=== PATIENT | male | born 1945 | race Caucasian/White ===

== ENCOUNTER 2016-04-26 11:16 | Outpatient (CLI) | payer MEDICARE, MEDICAID | END 2016-04-26 23:59 | disposition home or self-care (01) | DX: R26.9 Unspecified abnormalities of gait and mobility (principal); G40.109 Localization-related (focal) (partial) symptomatic epilepsy and epileptic syndromes with simple partial seizures, not intractable, without status epilepticus ==

== ENCOUNTER 2016-05-30 05:09 | Outpatient (CLI) | payer MEDICARE, MEDICAID | END 2016-05-30 05:10 | disposition home or self-care (01) | DX: G40.109 Localization-related (focal) (partial) symptomatic epilepsy and epileptic syndromes with simple partial seizures, not intractable, without status epilepticus (principal) ==

== ENCOUNTER 2016-09-25 08:00 | Outpatient (CLI) | payer MEDICARE, MEDICAID | END 2016-09-25 08:01 | LOC: LAB.N 08:00 | PROVIDERS: ATTEND Specialist | DX: R26.9 Unspecified abnormalities of gait and mobility (principal); G40.109 Localization-related (focal) (partial) symptomatic epilepsy and epileptic syndromes with simple partial seizures, not intractable, without status epilepticus | CPT/HCPCS: 36415; 80175 ==

== ENCOUNTER 2017-01-10 14:36 | Outpatient (CLI) | payer MEDICARE, MEDICAID ==
[2017-01-10 13:19] LABS: BASOPHILS # (AUTO) 0.1 10^3/uL (0.0-0.1); BASOPHILS % (AUTO) 0.6 %; EOSINOPHILS # (AUTO) 0.3 10^3/uL (0.0-0.7); EOSINOPHILS % (AUTO) 3.7 %; LYMPHOCYTES # (AUTO) 1.9 10^3/uL (1.5-3.5); LYMPHOCYTES % (AUTO) 21.1 %; MEAN CORPUSCULAR HEMOGLOBIN 30.4 pg (27.0-31.0); MEAN CORPUSCULAR HGB CONC 34.2 g/dL (32.0-36.0); MEAN CORPUSCULAR VOLUME 88.9 fL (80.0-94.0); MEAN PLATELET VOLUME 7.1 fL (7.4-11.4); MONOCYTES # (AUTO) 0.8 10^3/uL (0.0-1.0); MONOCYTES % (AUTO) 9.1 %; NEUTROPHILS # (AUTO) 5.8 10^3/uL (1.5-6.6); NEUTROPHILS % (AUTO) 65.5 %; RED BLOOD COUNT 4.61 10^6/uL (4.70-6.10); RED CELL DISTRIBUTION WIDTH 13.7 % (12.0-15.0); UNCORRECTED WHITE BLOOD COUNT 8.8 x10^3/uL; WHITE BLOOD COUNT 8.8 x10^3/uL (4.8-10.8)
[2017-01-10 13:49] LABS: ALBUMIN/GLOBULIN RATIO 1.6 (1.0-2.2); BILIRUBIN,TOTAL 0.8 mg/dL (0.2-1.0); BUN - BLOOD UREA NITROGEN 17 mg/dL (6-20); CALCIUM 9.3 mg/dL (8.5-10.3); CARBON DIOXIDE - CO2 29 mmol/L (21-32); CHLORIDE 99 mmol/L (101-111); CHOL/HDL RATIO 5.3 (<5.0); CHOLESTEROL 258 mg/dL; CREATININE 1.1 mg/dL (0.6-1.2); GFR - MDRD 66 (>89); GLUCOSE 102 mg/dL (70-100); HDL CHOLESTEROL 49 mg/dL; LDL/HDL RATIO 3.8 (<3.6); POTASSIUM 4.5 mmol/L (3.5-5.0); SODIUM 134 mmol/L (135-145); TOTAL PROTEIN 7.2 g/dL (6.7-8.2); TRIGLYCERIDES 112 mg/dL; VLDL CHOLESTEROL 22 mg/dL
== END 2017-01-10 14:37 | disposition home or self-care (01) ==
LOC: LAB.N 14:36
PROVIDERS: ATTEND Family Medicine
DX: L98.1 Factitial dermatitis (principal); E78.5 Hyperlipidemia, unspecified
CPT/HCPCS: 36415; 80053; 80061; 85025

== ENCOUNTER 2017-01-16 08:24 | Outpatient (CLI) | payer MEDICARE, MEDICAID | END 2017-01-16 08:25 | disposition critical access hospital (66) | LOC: EMS 08:24 | PROVIDERS: ATTEND Surgery | DX: R47.9 Unspecified speech disturbances (principal); R26.2 Difficulty in walking, not elsewhere classified | CPT/HCPCS: A0425; A0429 ==

== ENCOUNTER 2017-01-16 08:45 | Emergency (ER) | payer MEDICARE, MEDICAID ==
--- NOTE | 2017-01-16 09:11 | ED Physician Documentation ---
History of Present Illness - Stated complaint Stated Complaint: DIFF WITH SPEECH - Chief complaint Chief Complaint: Neuro - History obtained from History obtained from: Patient - History of Present Illness Timing: Today - Additonal information Additional information: 71-year-old male with prior history of traumatic brain injury seizure disorder and speech impediment today was in his usual state of health when he awoke this morning he was doing his usual morning routine when he suddenly developed profound dizziness. He became somewhat nauseous with this he has not had any vomiting he has had some difficulty walking. He does not note weakness on one side. He does have difficulty with his speech on a usual basis and he does not feel like this is changed. Review of Systems Constitutional: denies: Fever Eyes: denies: Decreased vision Ears: denies: Ear pain Nose: denies: Congestion Throat: denies: Sore throat Cardiac: denies: Chest pain / pressure, Palpitations Respiratory: denies: Dyspnea, Cough GI: reports: Nausea. denies: Abdominal Pain, Vomiting : denies: Dysuria, Frequency Skin: denies: Rash Musculoskeletal: denies: Neck pain, Back pain, Extremity pain Neurologic: reports: Other (Dizziness). denies: Generalized weakness, Focal weakness, Numbness, Headache, Head injury, LOC PD PAST MEDICAL HISTORY - Past Medical History Past Medical History: Yes Neuro: CVA, Head injury, Seizure disorder Derm: Eczema - Past Surgical History Past Surgical History: Yes General: Cholecystectomy Ortho: Spine surgery - Present Medications Home Medications: Ambulatory Orders Medication Instructions Recorded Confirmed Lamotrigine 75 mg PO TID 07/08/13 01/16/17 Azithromycin [Zithromax] 250 mg PO DAILY #6 tablet 01/16/17 - Allergies Allergies/Adverse Reactions: Allergies Allergy/AdvReac Type Severity Reaction Status Date / Time acetaminophen [From Percocet] AdvReac Emesis Verified 02/13/16 18:11 oxycodone HCl * AdvReac Emesis Verified 02/13/16 18:11 [From Percocet] - Social History Does the pt smoke?: Yes Smoking Status: Current every day smoker Does the pt drink ETOH?: No Does the pt have substance abuse?: No - POLST Patient has POLST: No PD ED PE NORMAL - Vitals Vital signs reviewed: Yes (Hypertensive) - General General: Alert and oriented X 3, No acute distress, Well developed/nourished, Other (There is a dysarthric speech which the patient indicates is normal for him) - HEENT HEENT: Atraumatic, PERRL, EOMI, Other (There are 2 beats of night nystagmus bilaterally with the eyes. There Is some mild inflammation in the canal bilaterally and minimal inflammation of the TM bilaterally.) - Neck Neck: Supple, no meningeal sign, No bony TTP, No bruit - Cardiac Cardiac: RRR, No murmur - Respiratory Respiratory: No respiratory distress, Clear bilaterally - Abdomen Abdomen: Soft, Non tender - Back Back: No CVA TTP, No spinal TTP - Derm Derm: Normal color, Warm and dry, No rash - Extremities Extremities: No deformity, No edema - Neuro Neuro: Alert and oriented X 3, care professional 2-12 intact, No motor deficit, No sensory deficit, Other (Dysarthric speech) - Psych Psych: Normal mood, Normal affect Results - Vitals Vitals: Vital Signs - 24 hr 01/16/17 01/16/17 01/16/17 08:45 09:28 10:18 Temperature 36.1 C L 36.0 C L 35.9 C L Heart Rate 73 71 67 Respiratory 17 12 17 Rate Blood Pressure 171/82 H 139/89 H 147/81 H O2 Saturation 97 98 95 01/16/17 11:36 Temperature Heart Rate 67 Respiratory 15 Rate Blood Pressure 150/81 H O2 Saturation 95 Oxygen O2 Source Room air - Labs Labs: Laboratory Tests 01/16/17 01/16/17 01/16/17 08:55 08:55 08:55 WBC 6.8 RBC 4.48 L Hgb 13.5 L Hct 39.9 L MCV 89.1 MCH 30.1 MCHC 33.8 RDW 14.0 Plt Count 233 MPV 6.9 L Neut # 4.6 Lymph # 1.3 L [place] # 0.6 Eos # 0.2 Baso # 0.1 Absolute Nucleated RBC 0.00 Nucleated RBC % 0.0 Sodium 136 Potassium 4.5 Chloride 100 L Carbon Dioxide 26 Anion Gap 10.0 BUN 16 Creatinine 1.1 Estimated GFR (MDRD) 66 L Glucose 149 H Calcium 9.2 Total Bilirubin 0.7 AST 21 ALT 14 Alkaline Phosphatase 69 Troponin I < 0.04 Total Protein 6.8 Albumin 4.2 Globulin 2.6 Albumin/Globulin Ratio 1.6 Lipase 28 - Rads (name of study) CT head without Radiology: Prelim report reviewed (Impression: Status post right temporal craniotomy and large area of right temporal area of encephalomalacia, generalized age-related cortical atrophic changes again noted, without evidence of acute intracranial bleed or hematoma.), EMP read indepedently, See rad report Procedures - IVC sono (time) 0855 Bedside IVC sono: IVC measures (cm) (1.88), Euvolemia PD MEDICAL DECISION MAKING - ED course Complexity details: reviewed old records, reviewed results, re-evaluated patient , considered differential, d/w patient ED course: 71-year-old male with prior history of traumatic brain injury has woken this morning with development of acute dizziness with nausea. He does have some nystagmus and some inflammation bilaterally in the TMs. The patient is administered dexamethasone and an order is made for meclizine and the patient refuses this as he is concerned about interference with his seizure medications. His examination is concerning for occult otitis. He does have dizziness. I believe in the circumstances treatment is warranted. He is given IV rocephin Departure - Departure Disposition: 01 Home, Self Care Clinical Impression: Otitis media Qualifiers: Otitis media type: suppurative Chronicity: acute Laterality: bilateral Recurrence: not specified as recurrent Spontaneous tympanic membrane rupture: without spontaneous rupture Qualified Code(s): H66.003 - Acute suppurative otitis media without spontaneous rupture of ear drum, bilateral Condition: Stable Instructions: ED Otitis Media Acute Adult Follow-Up: Emigdio Benjamin MD [Primary Care Provider] - Prescriptions: Azithromycin [Zithromax] 250 mg PO DAILY #6 tablet
[2017-01-16] MEDS ORDERED: DEXAMETHASONE 10 MG/ML VIAL PO STA (09:12)
[2017-01-16] MEDS ORDERED: MECLIZINE 12.5 MG TABLET PO STA (09:12)
[2017-01-16 09:15] LABS: BASOPHILS # (AUTO) 0.1 10^3/uL (0.0-0.1); EOSINOPHILS # (AUTO) 0.2 10^3/uL (0.0-0.7); EOSINOPHILS % (AUTO) 3.6 %; HCT - HEMATOCRIT 39.9 % (42.0-52.0); HGB - HEMOGLOBIN 13.5 g/dL (14.0-18.0); LYMPHOCYTES # (AUTO) 1.3 10^3/uL (1.5-3.5); LYMPHOCYTES % (AUTO) 18.8 %; MEAN CORPUSCULAR HEMOGLOBIN 30.1 pg (27.0-31.0); MEAN CORPUSCULAR HGB CONC 33.8 g/dL (32.0-36.0); MEAN CORPUSCULAR VOLUME 89.1 fL (80.0-94.0); MEAN PLATELET VOLUME 6.9 fL (7.4-11.4); MONOCYTES # (AUTO) 0.6 10^3/uL (0.0-1.0); NEUTROPHILS # (AUTO) 4.6 10^3/uL (1.5-6.6); NEUTROPHILS % (AUTO) 67.6 %; RED BLOOD COUNT 4.48 10^6/uL (4.70-6.10); UNCORRECTED WHITE BLOOD COUNT 6.8 x10^3/uL; WHITE BLOOD COUNT 6.8 x10^3/uL (4.8-10.8)
[2017-01-16 09:33] LABS: ALBUMIN/GLOBULIN RATIO 1.6 (1.0-2.2); BILIRUBIN,TOTAL 0.7 mg/dL (0.2-1.0); CALCIUM 9.2 mg/dL (8.5-10.3); CREATININE 1.1 mg/dL (0.6-1.2); POTASSIUM 4.5 mmol/L (3.5-5.0); TOTAL PROTEIN 6.8 g/dL (6.7-8.2)
[2017-01-16] MEDS ORDERED: DEXAMETHASONE 10 MG/ML VIAL ONE (09:37)
[2017-01-16] MEDS ORDERED: MECLIZINE 12.5 MG TABLET PO ONE (09:37)
--- NOTE | 2017-01-16 10:18 | CT Preliminary Report ---
Exam: CT HEAD W/O IMPRESSION: Status post right temporal craniotomy and large area of right temporal area of encephalom alacia, generalized age-related cortical atrophic changes again noted, without evidence of acute intr acranial bleed or hematoma. [facility] SITE ID: [id number]
--- NOTE | 2017-01-16 10:21 | CT Report ---
EXAM: CT HEAD EXAM DATE: 01/16/2017 09:22 AM. CLINICAL HISTORY: Dizziness/speech diff prior TBI. COMPARISON: 03/27/2011. TECHNIQUE: Multiaxial CT images were obtained from the foramen magnum to the vertex. IV contrast: Non e. Reformats: Coronal. In accordance with CT protocol optimization, one or more of the following dose reduction techniques w ere utilized for this exam: automated exposure control, adjustment of mA and/or KV based on patient s ize, or use of iterative reconstructive technique. FINDINGS: Parenchyma: The prior right temporal craniotomy with large size right temporal hypodensity, likely en cephalomalacia again noted, without significant interval changes. No intraparenchymal hemorrhage. No evidence of mass or midline shift. Alatorre-white differentiation is otherwise distinct. Extraaxial Spaces: Normal for age. No subdural or epidural collections identified. Ventricles: The ventricles and cortical sulci are enlarged, consistent with age-related tissue loss. Sinuses: Imaged paranasal sinuses, orbits, and mastoids show no significant abnormality. Bones: No evidence of fracture or calvarial defect. Other: Diffuse chronic microangiopathic white matter changes are slightly more prominent. IMPRESSION: Status post right temporal craniotomy and large area of right temporal area of encephalom alacia, generalized age-related cortical atrophic changes again noted, without evidence of acute intr acranial bleed or hematoma. [facility] Referring Provider Line: [phone] SITE ID: [id number]
[2017-01-16] MEDS ORDERED: cefTRIAXone 1 GM in SODIUM CHLORIDE 0.9% MINIBAG 100 ML IV STA (10:42)
[2017-01-16] MEDS ORDERED: cefTRIAXone 1 GM VIAL ONE (10:57)
[2017-01-16 12:37] VITALS: BP 127/85
== END 2017-01-16 14:42 | disposition home or self-care (01) ==
LOC: EDUNIT# → ED 08:45
DX: H66.003 Acute suppurative otitis media without spontaneous rupture of ear drum, bilateral (principal); Z86.73 Personal history of transient ischemic attack (TIA), and cerebral infarction without residual deficits; Z87.820 Personal history of traumatic brain injury; G40.909 Epilepsy, unspecified, not intractable, without status epilepticus; F17.200 Nicotine dependence, unspecified, uncomplicated; R42 Dizziness and giddiness
CPT/HCPCS: 36415; 70450; 80053; 83690; 84484; 85025; 96365; 99284; A9270

== ENCOUNTER 2017-04-02 08:00 | Outpatient (CLI) | payer MEDICARE, MEDICAID ==
[2017-04-02 14:08] LABS: CALCIUM 8.9 mg/dL (8.5-10.3); CREATININE 0.9 mg/dL (0.6-1.2); POTASSIUM 4.2 mmol/L (3.5-5.0)
== END 2017-04-02 08:01 ==
LOC: LAB.N 08:00
PROVIDERS: ATTEND Family Medicine
DX: I71.4 Abdominal aortic aneurysm, without rupture (principal)
CPT/HCPCS: 36415; 80048

== ENCOUNTER 2017-04-11 07:49 | Outpatient (CLI) | payer MEDICARE, MEDICAID ==
[2017-04-11] MEDS ORDERED: IOPAMIDOL-300 100 ML VIAL ONE (09:01)
[2017-04-11] MEDS ORDERED: IOPAMIDOL-300 100 ML VIAL IVP ONE (10:40)
--- NOTE | 2017-04-11 19:42 | CT Report ---
EXAM: CT ANGIOGRAM ABDOMEN AND PELVIS WITH CONTRAST EXAM DATE: 04/11/2017 10:46 AM. CLINICAL HISTORY: Abdominal aortic aneurysm. COMPARISONS: Noncontrast CT abdomen and pelvis 12/12/2006. TECHNIQUE: Routine helical CT angiogram imaging was performed through the abdomen and pelvis in the a rterial phase. IV contrast: 100 mL of Isovue 300. Enteric contrast: No. Reconstructions: Coronal, sag ittal, and 3D MIP reconstructions. In accordance with CT protocol optimization, one or more of the following dose reduction techniques w ere utilized for this exam: automated exposure control, adjustment of mA and/or KV based on patient s ize, or use of iterative reconstructive technique. FINDINGS: Vasculature: Interval intact fusiform infrarenal abdominal aortic aneurysm measures up to 5 x 5.3 cm in cross-section from 2 cm below the renal artery takeoff to 2 cm proximal to the aortic bifurcation, approximately 8.3 cm in length. Aneurysm neck measures 2.4 cm and distal aorta proximal to the bifur cation measures 2.1 cm. Considerable mural thrombus. Slightly dilated aortic segment from below the r enal artery to the proximal neck at 3.1 cm in maximal diameter. Moderate calcified plaques of aorta a nd common iliac arteries. No iliac aneurysm. Patent major abdominal aortic branch vessels. Duplicated left renal arteries, with an accessory artery supplying the lower pole. Lung Bases: Dependent changes. Abdominal Organs: Due to CTA contrast bolus timing, solid visceral enhancement is not optimal. No obv iously suspicious findings of the liver, spleen, pancreas, adrenal glands, and kidneys. Probable bila teral renal cysts up to 2.2 cm inferior right pole and 2.5 cm left mid pole. No ductal dilatation pos t cholecystectomy. Peritoneal Cavity: No acute intestinal abnormality. Normal retrocecal appendix. No free fluid or free air. No adenopathy evident. Pelvic Organs: Moderately enlarged prostate 5 cm AP diameter elevates the bladder base. No apparent f ocal abnormality of the relatively contracted bladder, noting a tiny urachal remnant. Bones: Degenerative changes of the spine, including grade 1 anterolisthesis L4 on L5. Mild depression of central T11 and T12 superior endplates, likely chronic. IMPRESSION: 1. An intact fusiform infrarenal abdominal aortic aneurysm 5.3 cm in maximal diameter. 2. No acute inflammatory or obstructive process. 3. Bilateral renal cysts. 4. Enlarged prostate. [facility] Referring Provider Line: [phone] SITE ID: [id number]
== END 2017-04-11 07:50 | disposition home or self-care (01) ==
LOC: DI 07:49
PROVIDERS: ATTEND Family Medicine
DX: I71.4 Abdominal aortic aneurysm, without rupture (principal); Q61.02 Congenital multiple renal cysts; N40.0 Benign prostatic hyperplasia without lower urinary tract symptoms
CPT/HCPCS: 74174; Q9967

== ENCOUNTER 2018-01-30 08:21 | Outpatient (CLI) | payer MEDICARE, MEDICAID ==
[2018-01-30 13:32] LABS: ALBUMIN 4.3 g/dL (3.2-5.5); ALBUMIN/GLOBULIN RATIO 1.4 (1.0-2.2); ALKALINE PHOSPHATASE 95 IU/L (42-121); ALT ALANINE AMINOTRANSFERASE 12 IU/L (10-60); AST ASPARTATE AMINOTRANSFERASE 21 IU/L (10-42); BUN - BLOOD UREA NITROGEN 13 mg/dL (6-20); CARBON DIOXIDE - CO2 27 mmol/L (21-32); CHLORIDE 97 mmol/L (101-111); CHOL/HDL RATIO 4.7 (<5.0); CHOLESTEROL 232 mg/dL; CREATININE 1.2 mg/dL (0.6-1.2); GFR - MDRD 60 (>89); GLUCOSE 99 mg/dL (70-100); HDL CHOLESTEROL 49 mg/dL; LDL CHOLESTEROL,CALCULATED 168 mg/dL; LDL/HDL RATIO 3.4 (<3.6); SODIUM 133 mmol/L (135-145); TOTAL PROTEIN 7.3 g/dL (6.7-8.2); VLDL CHOLESTEROL 15 mg/dL
== END 2018-01-30 08:22 | disposition home or self-care (01) ==
LOC: LAB.N 08:21
PROVIDERS: ATTEND Family Medicine
DX: E78.5 Hyperlipidemia, unspecified (principal)
CPT/HCPCS: 36415; 80053; 80061; 83721

== ENCOUNTER 2018-07-23 08:00 | Outpatient (CLI) | payer MEDICARE, MEDICAID ==
[2018-07-23 12:18] LABS: BASOPHILS % (AUTO) 0.4 %; EOSINOPHILS % (AUTO) 0.4 %; HGB - HEMOGLOBIN 11.9 g/dL (14.0-18.0); LYMPHOCYTES # (AUTO) 0.9 10^3/uL (1.5-3.5); LYMPHOCYTES % (AUTO) 10.7 %; MEAN CORPUSCULAR HEMOGLOBIN 29.7 pg (27.0-31.0); MEAN CORPUSCULAR HGB CONC 33.8 g/dL (32.0-36.0); MEAN CORPUSCULAR VOLUME 87.8 fL (80.0-94.0); MEAN PLATELET VOLUME 6.7 fL (7.4-11.4); MONOCYTES # (AUTO) 0.8 10^3/uL (0.0-1.0); MONOCYTES % (AUTO) 9.6 %; NEUTROPHILS # (AUTO) 6.6 10^3/uL (1.5-6.6); NEUTROPHILS % (AUTO) 78.9 %; PLT - PLATELET COUNT 325 10^3/uL (130-450); RED CELL DISTRIBUTION WIDTH 14.3 % (12.0-15.0); WHITE BLOOD COUNT 8.4 x10^3/uL (4.8-10.8)
[2018-07-23 12:39] LABS: ALBUMIN 4.2 g/dL (3.2-5.5); ALBUMIN/GLOBULIN RATIO 1.4 (1.0-2.2); BILIRUBIN,TOTAL 0.9 mg/dL (0.2-1.0); CALCIUM 9.4 mg/dL (8.5-10.3); CREATININE 0.8 mg/dL (0.6-1.2); TOTAL PROTEIN 7.3 g/dL (6.7-8.2)
== END 2018-07-23 23:59 | disposition home or self-care (01) ==
LOC: LAB.N 08:00
PROVIDERS: ATTEND Family Medicine
DX: M79.10 Myalgia, unspecified site (principal); L98.1 Factitial dermatitis; L30.9 Dermatitis, unspecified; R04.0 Epistaxis
CPT/HCPCS: 36415; 80053; 85025

== ENCOUNTER 2018-11-10 16:42 | Emergency (ER) | payer MEDICARE, MEDICAID ==
[2018-11-10] MEDS ORDERED: LIDOCAINE 2% URO-JET 5 ML SYRINGE UR STA (17:08)
[2018-11-10] MEDS ORDERED: TAMSULOSIN 0.4 MG CAPSULE PO STA (17:44)
[2018-11-10 17:48] LABS: BILIRUBIN,URINE NEGATIVE (NEGATIVE); GLUCOSE, URINE (UA) 100 mg/dL (NEGATIVE); KETONES,URINE (UA) NEGATIVE (NEGATIVE); LEUKOCYTE ESTERASE, URINE NEGATIVE (NEGATIVE); NITRITE,URINE NEGATIVE (NEGATIVE); OCCULT BLOOD,URINE MODERATE (NEGATIVE); PROTEIN,URINE NEGATIVE (NEGATIVE); UROBILINOGEN,URINE 0.2 (NORMAL) E.U./dL (NORMAL)
--- NOTE | 2018-11-10 17:49 | ED Physician Documentation ---
History of Present Illness - Stated complaint Stated Complaint: MALE - Chief complaint Chief Complaint: General - History obtained from History obtained from: Patient - History of Present Illness Timing: Last night Pain level max: 5 Pain level now: 5 - Additonal information Additional information: 73-year-old male with unable to urinate since last night at 10 PM. Complaining of lower abdominal discomfort. Has never had similar symptoms in the past. No fevers. No vomiting. Nothing makes it better or worse. Review of Systems Ten Systems: 10 systems reviewed and negative Constitutional: denies: Fever, Chills Respiratory: denies: Cough GI: denies: Nausea, Vomiting, Diarrhea : reports: Unable to Void. denies: Dysuria, Frequency, Hesitancy Skin: denies: Rash Musculoskeletal: denies: Neck pain, Back pain PD PAST MEDICAL HISTORY - Past Medical History Derm: Eczema - Past Surgical History Past Surgical History: Yes General: Cholecystectomy Ortho: Spine surgery - Present Medications Home Medications: Ambulatory Orders Medication Instructions Recorded Confirmed Lamotrigine 75 mg PO TID 07/08/13 01/16/17 Azithromycin [Zithromax] 250 mg PO DAILY #6 tablet 01/16/17 Tamsulosin [Flomax] 0.4 mg PO DAILY #14 capsule 11/10/18 - Allergies Allergies/Adverse Reactions: Allergies Allergy/AdvReac Type Severity Reaction Status Date / Time acetaminophen [From Percocet] AdvReac Emesis Verified 11/10/18 16:54 oxycodone HCl * AdvReac Emesis Verified 11/10/18 16:54 [From Percocet] - Social History Does the pt smoke?: Yes Smoking Status: Current every day smoker Does the pt drink ETOH?: No Does the pt have substance abuse?: No - POLST Patient has POLST: No PD ED PE NORMAL - Vitals Vital signs reviewed: Yes - General General: Alert and oriented X 3, No acute distress - HEENT HEENT: Moist mucous membranes - Neck Neck: Supple, no meningeal sign - Cardiac Cardiac: RRR - Respiratory Respiratory: No respiratory distress, Clear bilaterally - Abdomen Abdomen: Soft, Non distended, Other (Palpable bladder just below the umbilicus) - Back Back: No CVA TTP - Derm Derm: Warm and dry - Neuro Neuro: Alert and oriented X 3 Results - Vitals Vitals: Vital Signs - 24 hr 11/10/18 11/10/18 16:47 18:43 Temperature 36.5 C 36.9 C Heart Rate 88 64 Respiratory 17 16 Rate Blood Pressure 202/109 H 132/73 H O2 Saturation 96 96 Oxygen O2 Source Room air - Labs Labs: Laboratory Tests 11/10/18 17:35 Urine Color YELLOW Urine Clarity CLEAR Urine pH 6.0 Ur Specific [place] 1.015 Urine Protein NEGATIVE Urine Glucose (UA) 100 H Urine Ketones NEGATIVE Urine Occult Blood MODERATE H Urine Nitrite NEGATIVE Urine Bilirubin NEGATIVE Urine Urobilinogen 0.2 (NORMAL) Ur Leukocyte Esterase NEGATIVE Urine RBC 11-25 H Urine WBC 0-3 Ur Squamous Epith Cells NONE SEEN Urine Bacteria None Seen Ur Microscopic Review INDICATED Urine Culture Comments NOT INDICATED PD MEDICAL DECISION MAKING - ED course Complexity details: reviewed results, re-evaluated patient, considered differential, d/w patient ED course: Patient with acute urinary retention. Unclear etiology. Will place on Flomax and follow-up with his doctor. Catheter left in place. Over 2 L drained from his bladder. Patient counseled regarding signs and symptoms for which I believe and urgent re-evaluation would be necessary. Patient with good understanding of and agreement to plan and is comfortable going home at this time This document was made in part using voice recognition software. While efforts are made to proofread this document, sound alike and grammatical errors may occur. Departure - Departure Disposition: 01 Home, Self Care Clinical Impression: Urinary retention Condition: Good Instructions: ED Catheter Care Baez Follow-Up: [facility] [Provider Group] - Within 3 Days Prescriptions: Tamsulosin [Flomax] 0.4 mg PO DAILY #14 capsule Comments: Follow-up with your doctor within 1 week for catheter removal. Leave the catheter in place until that time. Take the Flomax daily. Return if you worsen. Discharge Date/Time: 11/10/18 18:44
[2018-11-10 17:51] LABS: CLARITY,URINE CLEAR (CLEAR)
[2018-11-10 18:00] LABS: BACTERIA,URINE None Seen /HPF (None Seen); SQUAMOUS EPITHELIAL CELL,UR NONE SEEN (<= Few)
[2018-11-10 18:44] VITALS: BP 132/73
== END 2018-11-10 18:44 | disposition home or self-care (01) ==
LOC: ED 16:42
DX: R33.9 Retention of urine, unspecified (principal); F17.200 Nicotine dependence, unspecified, uncomplicated
CPT/HCPCS: 51702; 81001; 99283; 99284; A9270; 81003; 87086

== ENCOUNTER 2018-11-18 05:57 | Outpatient (CLI) | payer MEDICARE, MEDICAID | END 2018-11-18 05:58 | disposition critical access hospital (66) | LOC: EMS 05:57 | PROVIDERS: ATTEND Surgery | DX: R39.198 Other difficulties with micturition (principal) | CPT/HCPCS: A0425; A0429 ==

== ENCOUNTER 2018-11-18 06:25 | Emergency (ER) | payer MEDICARE, MEDICAID ==
--- NOTE | 2018-11-18 06:41 | ED Physician Documentation ---
History of Present Illness - Stated complaint Stated Complaint: URINARY RETENTION - Chief complaint Chief Complaint: General - Additonal information Additional information: This is a 73-year-old male who presents with inability to void. Patient was seen in the emergency department around 1 week ago, at which point he was unable to void a Baez catheter was placed and he was discharged. He saw his doctor (who he thinks was a urologist) today, who removed his Baez catheter at 1 PM, and he was able to void a small amount initially, but since that time he has been unable to void. He has had suprapubic pain and distention, he denies any nausea or vomiting, upper abdominal pain. He was prescribed Flomax he never filled it. No fever. Review of Systems Constitutional: denies: Fever Cardiac: denies: Chest pain / pressure Respiratory: denies: Dyspnea GI: reports: Abdominal Pain : reports: Unable to Void Neurologic: denies: Generalized weakness PD PAST MEDICAL HISTORY - Past Medical History Derm: Eczema - Past Surgical History Past Surgical History: Yes General: Cholecystectomy Ortho: Spine surgery - Present Medications Home Medications: Ambulatory Orders Medication Instructions Recorded Confirmed Tamsulosin HCl [Flomax] 0.4 mg PO DAILY #14 capsule 11/18/18 - Allergies Allergies/Adverse Reactions: Allergies Allergy/AdvReac Type Severity Reaction Status Date / Time acetaminophen [From Percocet] AdvReac Emesis Verified 11/18/18 06:45 oxycodone HCl * AdvReac Emesis Verified 11/18/18 06:45 [From Percocet] - Social History Does the pt smoke?: Yes Smoking Status: Current every day smoker Does the pt drink ETOH?: No Does the pt have substance abuse?: No - POLST Patient has POLST: No PD ED PE NORMAL - Vitals Vital signs reviewed: Yes - General General: Alert and oriented X 3 - HEENT HEENT: PERRL - Cardiac Cardiac: RRR, No murmur - Respiratory Respiratory: Clear bilaterally - Abdomen Abdomen: Other (There is suprapubic fullness and tenderness to palpation. The upper quadrants are nontender to palpation. There is no guarding.) - Male Male : Other (Penis is normal in appearance without lesions. Testicles are down bilaterally, no skin lesions, no testicular tenderness.) - Derm Derm: Warm and dry - Extremities Extremities: No deformity - Neuro Neuro: Alert and oriented X 3 - Psych Psych: Normal mood, Normal affect Results - Vitals Vitals: Vital Signs - 24 hr 11/18/18 11/18/18 11/18/18 06:30 06:49 09:00 Temperature 36 C L Heart Rate 76 64 86 Respiratory 22 12 18 Rate Blood Pressure 206/126 H 170/86 H 141/86 H O2 Saturation 98 99 98 Oxygen O2 Source Room air - Labs Labs: Laboratory Tests 11/18/18 11/18/18 06:50 06:50 Sodium 137 Potassium 3.3 L Chloride 99 L Carbon Dioxide 24 Anion Gap 14.0 H BUN 14 Creatinine 0.9 Estimated GFR (MDRD) 83 L Glucose 132 H Calcium 9.1 Urine Color YELLOW Urine Clarity CLEAR Urine pH 7.0 Ur Specific [place] 1.015 Urine Protein NEGATIVE Urine Glucose (UA) NEGATIVE Urine Ketones NEGATIVE Urine Occult Blood MODERATE H Urine Nitrite NEGATIVE Urine Bilirubin NEGATIVE Urine Urobilinogen 0.2 (NORMAL) Ur Leukocyte Esterase NEGATIVE Urine RBC 11-25 H Urine WBC 0-3 Ur Squamous Epith Cells NONE SEEN Urine Bacteria None Seen Urine Culture Comments NOT INDICATED PD MEDICAL DECISION MAKING - ED course Complexity details: considered differential (Retention, obstructive uropathy, LOU, electrolyte abnormality, the hyperplasia, urinary tract infection) ED course: This is a 73-year-old male presenting with acute urinary retention. He was seen with a similar complaint last week, he had a Baez catheter placed, but he was not taking his Flomax that was prescribed because he did not fill the prescription. His Baez was removed today at one and he has since been unable to void. On examination he has suprapubic fullness, and is hypertensive. Baez catheter was placed and greater than 1 L of urine was drained. Patient had improvement his vital signs and is abdominal pain completely resolved. His urine shows some red microscopic blood cells, no signs of infection. BMP shows mild hypokalemia which was repleted, normal creatinine. I prescribed him another course of tamsulosin and urged him to follow-up with his urologist for a voiding trial. I discussed return precautions including fever, abdominal pain, if his catheter malfunctions or is not draining urine properly, or any other concerning symptoms. Patient agreed and was discharged home. Departure - Departure Disposition: 01 Home, Self Care Clinical Impression: Acute urinary retention Condition: Stable Instructions: ED Retention Urinary Male Follow-Up: Your, PCP [Other] Prescriptions: Tamsulosin HCl [Flomax] 0.4 mg PO DAILY #14 capsule Comments: You were seen today for inability to urinate. Your kidney function is normal today, we do not see signs of urinary tract infection. Please follow-up with your primary care provider and/or urologist in 1 week to see if your catheter can be removed. In the meantime take the Flomax as directed. Come back to the ED with any new or concerning symptoms. Discharge Date/Time: 11/18/18 09:19
[2018-11-18 06:58] LABS: BILIRUBIN,URINE NEGATIVE (NEGATIVE); GLUCOSE, URINE (UA) NEGATIVE (NEGATIVE); KETONES,URINE (UA) NEGATIVE (NEGATIVE); LEUKOCYTE ESTERASE, URINE NEGATIVE (NEGATIVE); NITRITE,URINE NEGATIVE (NEGATIVE); OCCULT BLOOD,URINE MODERATE (NEGATIVE); PROTEIN,URINE NEGATIVE (NEGATIVE); UROBILINOGEN,URINE 0.2 (NORMAL) E.U./dL (NORMAL)
[2018-11-18 07:01] LABS: CLARITY,URINE CLEAR (CLEAR)
[2018-11-18 07:03] LABS: BACTERIA,URINE None Seen /HPF (None Seen); SQUAMOUS EPITHELIAL CELL,UR NONE SEEN (<= Few)
[2018-11-18 07:07] LABS: CALCIUM 9.1 mg/dL (8.5-10.3); CREATININE 0.9 mg/dL (0.6-1.2)
[2018-11-18] MEDS ORDERED: POTASSIUM CHLORIDE 20 MEQ TABLET PO STA (07:31)
[2018-11-18 09:17] VITALS: BP 141/86
== END 2018-11-18 09:19 | disposition home or self-care (01) ==
LOC: EDUNIT# → ED 06:25
DX: R33.9 Retention of urine, unspecified (principal); E87.6 Hypokalemia; F17.200 Nicotine dependence, unspecified, uncomplicated
CPT/HCPCS: 36415; 51702; 80048; 81001; 99283; 99284; A9270; 87086

== ENCOUNTER 2018-11-22 11:21 | Outpatient (CLI) | payer MEDICARE, MEDICAID | END 2018-11-22 11:22 | disposition critical access hospital (66) | LOC: EMS 11:21 | PROVIDERS: ATTEND Surgery | DX: T83.038A Leakage of other urinary catheter, initial encounter (principal) | CPT/HCPCS: A0425; A0429 ==

== ENCOUNTER 2018-11-22 11:53 | Emergency (ER) | payer MEDICARE, MEDICAID ==
--- NOTE | 2018-11-22 12:40 | ED Physician Documentation ---
PD HPI MALE - Stated complaint Stated Complaint: - Chief complaint Chief Complaint: Abd Pain - History obtained from History obtained from: Patient - History of Present Illness Timing - onset: Today Timing - duration: Days (1) Timing - details: Abrupt onset Pain level max: 0 Pain level now: 0 Recently seen: Emergency Dept (for urinary retention) - Additional information Additional information: states urine leaking around his catheter. States small amount of blood in the urine. Review of Systems Constitutional: denies: Fever, Chills Respiratory: denies: Cough Musculoskeletal: denies: Neck pain, Back pain Neurologic: denies: Headache PD PAST MEDICAL HISTORY - Past Medical History Past Medical History: Yes Derm: Eczema - Past Surgical History Past Surgical History: Yes General: Cholecystectomy Ortho: Spine surgery - Present Medications Home Medications: Ambulatory Orders Medication Instructions Recorded Confirmed Tamsulosin HCl [Flomax] 0.4 mg PO DAILY #14 capsule 11/18/18 - Allergies Allergies/Adverse Reactions: Allergies Allergy/AdvReac Type Severity Reaction Status Date / Time acetaminophen [From Percocet] AdvReac Emesis Verified 11/22/18 12:02 oxycodone HCl * AdvReac Emesis Verified 11/22/18 12:02 [From Percocet] - Social History Does the pt smoke?: Yes Smoking Status: Current every day smoker Does the pt drink ETOH?: No Does the pt have substance abuse?: No - Immunizations Immunizations are current?: No - POLST Patient has POLST: No PD ED PE NORMAL - Vitals Vital signs reviewed: Yes - General General: Alert and oriented X 3, No acute distress - HEENT HEENT: Moist mucous membranes - Neck Neck: Supple, no meningeal sign - Abdomen Abdomen: Soft, Non tender, Non distended - Male Male : Other (small blood at urethral meatus.) - Derm Derm: Warm and dry - Neuro Neuro: Alert and oriented X 3 - Psych Psych: Normal mood, Normal affect Results - Vitals Vitals: Vital Signs - 24 hr 11/22/18 11/22/18 11/22/18 11:58 12:04 13:53 Temperature 36.4 C L Heart Rate 73 70 84 Respiratory 16 14 16 Rate Blood Pressure 164/103 H 166/83 H 172/86 H O2 Saturation 98 95 98 Oxygen O2 Source Room air - Labs Labs: Laboratory Tests 11/22/18 12:38 Urine Color RED/BLOODY Urine Clarity BLOODY Urine pH 7.0 Ur Specific [place] 1.020 Urine Protein 30 H Urine Glucose (UA) NEGATIVE Urine Ketones NEGATIVE Urine Occult Blood LARGE H Urine Nitrite NEGATIVE Urine Bilirubin NEGATIVE Urine Urobilinogen 1 (NORMAL) Ur Leukocyte Esterase TRACE H Urine RBC TNTC H Urine WBC 0-3 Ur Squamous Epith Cells NONE SEEN Urine Bacteria Rare Ur Microscopic Review INDICATED Urine Culture Comments INDICATED PD MEDICAL DECISION MAKING - ED course Complexity details: considered differential, d/w patient ED course: 73-year-old male with slight hematuria. Has an indwelling catheter. The catheter was changed. No UTI. We will follow-up with his doctor for further care. Patient counseled regarding signs and symptoms for which I believe and urgent re-evaluation would be necessary. Patient with good understanding of and agreement to plan and is comfortable going home at this time This document was made in part using voice recognition software. While efforts are made to proofread this document, sound alike and grammatical errors may occur. Departure - Departure Disposition: 01 Home, Self Care Clinical Impression: Hematuria Qualifiers: Hematuria type: unspecified type Qualified Code(s): R31.9 - Hematuria, unspecified Condition: Good Instructions: ED Hematuria Follow-Up: your,doctor in 3 days. [Other] [facility] [Provider Group] Comments: Return if you worsen. You need to follow up with urology. Your doctor may need to make this referral for you. Drink plenty of water. Discharge Date/Time: 11/22/18 13:53
[2018-11-22 12:48] LABS: BILIRUBIN,URINE NEGATIVE (NEGATIVE); GLUCOSE, URINE (UA) NEGATIVE (NEGATIVE); KETONES,URINE (UA) NEGATIVE (NEGATIVE); LEUKOCYTE ESTERASE, URINE TRACE (NEGATIVE); NITRITE,URINE NEGATIVE (NEGATIVE); OCCULT BLOOD,URINE LARGE (NEGATIVE); PROTEIN,URINE 30 mg/dL (NEGATIVE); UROBILINOGEN,URINE 1 (NORMAL) E.U./dL (NORMAL)
[2018-11-22 12:54] LABS: CLARITY,URINE BLOODY (CLEAR)
[2018-11-22 13:10] LABS: BACTERIA,URINE Rare /HPF (None Seen); RBC,URINE TNTC /HPF (0-5); SQUAMOUS EPITHELIAL CELL,UR NONE SEEN (<= Few)
[2018-11-22 13:55] VITALS: BP 172/86
== END 2018-11-22 13:53 | disposition home or self-care (01) ==
LOC: ED 11:53
DX: T83.031A Leakage of indwelling urethral catheter, initial encounter (principal); Y84.6 Urinary catheterization as the cause of abnormal reaction of the patient, or of later complication, without mention of misadventure at the time of the procedure; R31.9 Hematuria, unspecified; F17.200 Nicotine dependence, unspecified, uncomplicated
CPT/HCPCS: 81001; 81003; 87086; 99283; 99284

== ENCOUNTER 2018-11-27 07:15 | Outpatient (CLI) | payer MEDICARE, MEDICAID | END 2018-11-27 07:16 | disposition critical access hospital (66) | LOC: EMS 07:15 | PROVIDERS: ATTEND Surgery | DX: T83.011A Breakdown (mechanical) of indwelling urethral catheter, initial encounter (principal) | CPT/HCPCS: A0425; A0429 ==

== ENCOUNTER 2018-11-27 07:46 | Emergency (ER) | payer MEDICARE, MEDICAID ==
[2018-11-27 08:52] LABS: BILIRUBIN,URINE NEGATIVE (NEGATIVE); GLUCOSE, URINE (UA) NEGATIVE (NEGATIVE); KETONES,URINE (UA) NEGATIVE (NEGATIVE); LEUKOCYTE ESTERASE, URINE SMALL (NEGATIVE); NITRITE,URINE NEGATIVE (NEGATIVE); OCCULT BLOOD,URINE LARGE (NEGATIVE); PROTEIN,URINE NEGATIVE (NEGATIVE); UROBILINOGEN,URINE 0.2 (NORMAL) E.U./dL (NORMAL)
[2018-11-27 08:54] LABS: CLARITY,URINE CLEAR (CLEAR)
[2018-11-27 09:02] LABS: BACTERIA,URINE Rare /HPF (None Seen); SQUAMOUS EPITHELIAL CELL,UR NONE SEEN (<= Few)
--- NOTE | 2018-11-27 09:06 | ED Physician Documentation ---
PD HPI MALE - Stated complaint Stated Complaint: BROKEN LIN - Chief complaint Chief Complaint: General - History obtained from History obtained from: Patient - History of Present Illness Timing - onset: Today Timing - duration: Hours Timing - details: Abrupt onset, Still present Associated symptoms: Lin problem Similar symptoms before: Diagnosis (broken lin) Recently seen: Emergency Dept - Additional information Additional information: 73-year-old male with a CVA has had urinary retention and he has been seen in the emergency department 2 and half weeks ago a Lin catheter was placed he has been back to the emerge department after the Lin catheter was removed and he failed a voiding test. Today he has called the ambulance when his Lin catheter was broken and leaking all over the floor. Review of Systems Constitutional: denies: Fever Ears: denies: Ear pain Nose: denies: Congestion Throat: denies: Sore throat Respiratory: denies: Cough GI: denies: Abdominal Pain, Nausea, Vomiting, Constipation, Diarrhea : reports: Lin Problem Skin: denies: Rash Musculoskeletal: denies: Neck pain, Back pain, Extremity pain PD PAST MEDICAL HISTORY - Past Medical History Past Medical History: Yes Neuro: CVA : Retention Derm: Eczema - Past Surgical History Past Surgical History: Yes General: Cholecystectomy Ortho: Spine surgery - Present Medications Home Medications: Ambulatory Orders Medication Instructions Recorded Confirmed Tamsulosin HCl [Flomax] 0.4 mg PO DAILY #14 capsule 11/18/18 11/27/18 - Allergies Allergies/Adverse Reactions: Allergies Allergy/AdvReac Type Severity Reaction Status Date / Time acetaminophen [From Percocet] AdvReac Emesis Verified 11/27/18 08:02 oxycodone HCl * AdvReac Emesis Verified 11/27/18 08:02 [From Percocet] - Social History Does the pt smoke?: Yes Smoking Status: Current every day smoker Does the pt drink ETOH?: No Does the pt have substance abuse?: No - Immunizations Immunizations are current?: No - POLST Patient has POLST: No PD ED PE NORMAL - Vitals Vital signs reviewed: Yes (hypertensive ) - General General: No acute distress, Well developed/nourished, Other (dysarthric speech is present) - HEENT HEENT: Atraumatic, PERRL, EOMI - Respiratory Respiratory: No respiratory distress - Back Back: No CVA TTP - Derm Derm: Normal color, Warm and dry, No rash - Extremities Extremities: No deformity, No edema - Neuro Neuro: Alert and oriented X 3, director consumer 2-12 intact, No motor deficit, No sensory deficit, Other (dysarthric speech) Eye Opening: Spontaneous Motor: Obeys Commands Verbal: Oriented GCS Score: 15 - Psych Psych: Normal mood, Normal affect Results - Vitals Vitals: Vital Signs - 24 hr 11/27/18 07:46 Temperature 36.4 C L Heart Rate 78 Respiratory 16 Rate Blood Pressure 155/73 H O2 Saturation 99 Oxygen O2 Source Room air - Labs Labs: Laboratory Tests 11/27/18 08:41 Urine Color YELLOW Urine Clarity CLEAR Urine pH 6.0 Ur Specific [place] 1.015 Urine Protein NEGATIVE Urine Glucose (UA) NEGATIVE Urine Ketones NEGATIVE Urine Occult Blood LARGE H Urine Nitrite NEGATIVE Urine Bilirubin NEGATIVE Urine Urobilinogen 0.2 (NORMAL) Ur Leukocyte Esterase SMALL H Urine RBC 11-25 H Urine WBC 0-3 Ur Squamous Epith Cells NONE SEEN Urine Bacteria Rare Ur Microscopic Review INDICATED Urine Culture Comments INDICATED PD MEDICAL DECISION MAKING - ED course Complexity details: reviewed old records, reviewed results, re-evaluated patient, considered differential, d/w patient ED course: 73-year-old male with urinary retention and a Lin catheter in place has had the catheter, part this is reassembled with a new part and is functioning well. There is no evidence of infection. The patient will need follow-up with urology for a voiding trial. Departure - Departure Disposition: 01 Home, Self Care Clinical Impression: Urinary retention Lin catheter problem Qualifiers: Encounter type: initial encounter Qualified Code(s): T83.9XXA - Unspecified complication of genitourinary prosthetic device, implant and graft, initial encounter Condition: Stable Instructions: ED Catheter Care Lin Follow-Up: Abelardo Tovar PA-C [Primary Care Provider] - Elio Erickson MD [Physician No Access] - Comments: You will need to have a voiding trial done with the urologist before the catheter can come out. Take the angelina-max as prescribed and follow up with the urologist.
[2018-11-27 09:29] VITALS: BP 144/74
== END 2018-11-27 09:30 | disposition home or self-care (01) ==
LOC: EDUNIT# → ED 07:46
DX: T83.011A Breakdown (mechanical) of indwelling urethral catheter, initial encounter (principal); R33.9 Retention of urine, unspecified; F17.200 Nicotine dependence, unspecified, uncomplicated
CPT/HCPCS: 81001; 81003; 87086; 99282; 99283

== ENCOUNTER 2018-12-08 11:49 | Outpatient (CLI) | payer MEDICARE, MEDICAID | END 2018-12-08 11:50 | disposition critical access hospital (66) | LOC: EMS 11:49 | PROVIDERS: ATTEND Surgery | DX: N48.89 Other specified disorders of penis (principal) | CPT/HCPCS: A0425; A0429 ==

== ENCOUNTER 2018-12-08 12:21 | Emergency (ER) | payer MEDICARE, MEDICAID ==
--- NOTE | 2018-12-08 12:25 | ED Physician Documentation ---
PD HPI MALE - Stated complaint Stated Complaint: BLEEDING CATH - History obtained from History obtained from: Patient, EMS - History of Present Illness Timing - onset: Today (73-year-old gentleman with urinary retention that started in the last month. He also has a history of stroke. Today after finishing antibiotics for a positive urine culture he developed gross hematuria into the bag.) Review of Systems Constitutional: denies: Fever, Chills GI: reports: Abdominal Pain (mild suporapubic discomfort). denies: Nausea, Vomiting Skin: denies: Rash, Lesions PD PAST MEDICAL HISTORY - Past Medical History Neuro: CVA : Retention Derm: Eczema - Past Surgical History Past Surgical History: Yes General: Cholecystectomy Ortho: Spine surgery - Present Medications Home Medications: Ambulatory Orders Medication Instructions Recorded Confirmed Tamsulosin HCl [Flomax] 0.4 mg PO DAILY #14 capsule 11/18/18 11/27/18 Nitrofurantoin Monohyd/M-Cryst 100 mg PO BID #10 capsule 12/08/18 [Macrobid 100 mg Capsule] Tamsulosin [Flomax] 0.4 mg PO DAILY #30 capsule 12/08/18 - Allergies Allergies/Adverse Reactions: Allergies Allergy/AdvReac Type Severity Reaction Status Date / Time acetaminophen [From Percocet] AdvReac Emesis Verified 12/08/18 12:28 oxycodone HCl * AdvReac Emesis Verified 12/08/18 12:28 [From Percocet] - Social History Does the pt smoke?: Yes Smoking Status: Current every day smoker Does the pt drink ETOH?: No Does the pt have substance abuse?: No - Immunizations Immunizations are current?: No - POLST Patient has POLST: No PD ED PE NORMAL - Vitals Vital signs reviewed: Yes - General General: Alert and oriented X 3, No acute distress, Other (He has residual deficits from prior stroke with some speech difficulties, but he is a good historian and understandable.) - Abdomen Abdomen: Soft, Non tender - Male Male : Other (Baez catheter in place, it looks like the meatus is the source of the blood, there is more blood externally than in the bag although inside the bag it is tinged but not opaque. No clots.) - Extremities Extremities: No edema, No calf tenderness / cord - Neuro Neuro: Alert and oriented X 3 Results - Vitals Vitals: Vital Signs - 24 hr 12/08/18 12/08/18 12:28 13:48 Temperature 37.0 C Heart Rate 71 60 Respiratory 17 16 Rate Blood Pressure 144/86 H 145/87 H O2 Saturation 98 99 Oxygen O2 Source Room air - Labs Labs: Laboratory Tests 12/08/18 13:20 Urine Color LT RED Urine Clarity CLOUDY Urine pH 7.0 Ur Specific [place] 1.015 Urine Protein 100 H Urine Glucose (UA) NEGATIVE Urine Ketones NEGATIVE Urine Occult Blood LARGE H Urine Nitrite POSITIVE H Urine Bilirubin NEGATIVE Urine Urobilinogen 0.2 (NORMAL) Ur Leukocyte Esterase SMALL H Urine RBC TNTC H Urine WBC 6-10 H Ur Epithelial Cells FEW Transitional Ur Squamous Epith Cells FEW Squamous Urine Bacteria Few Ur Microscopic Review INDICATED Urine Culture Comments INDICATED PD MEDICAL DECISION MAKING - ED course ED course: His Baez was removed. He actually passed a voiding challenge and subsequent to that had 0 on a bladder scan. As such we will not replace the Baez today. Previous culture grew coagulase-negative Staphylococcus. Sensitivities were not done but looking at the hospital's antibiogram, Macrobid is probably the best oral option. Departure - Departure Disposition: Home, Self Care Clinical Impression: Baez catheter problem Qualifiers: Encounter type: initial encounter Qualified Code(s): T83.9XXA - Unspecified complication of genitourinary prosthetic device, implant and graft, initial encounter UTI (urinary tract infection) due to urinary indwelling catheter Qualifiers: Indwelling urinary catheter type: indwelling urethral catheter Encounter type: initial encounter Qualified Code(s): T83.511A - Infection and inflammatory r eaction due to indwelling urethral catheter, initial encounter; N39.0 - Urinary tract infection, site not specified Record reviewed to determine appropriate education?: Yes Instructions: ED UTI Cystitis Male Prescriptions: Nitrofurantoin Monohyd/M-Cryst [Macrobid 100 mg Capsule] 100 mg PO BID #10 capsule Tamsulosin [Flomax] 0.4 mg PO DAILY #30 capsule Comments: At this point it seems like you do not need the catheter anymore since you are able to urinate here, but return immediately if you have subsequent problems. We will refill your Flomax and also you need to be on an antibiotic for what appears to be a persistent infection, but this should be easier to clear now that the catheter is out.
[2018-12-08 13:31] LABS: BILIRUBIN,URINE NEGATIVE (NEGATIVE); GLUCOSE, URINE (UA) NEGATIVE (NEGATIVE); KETONES,URINE (UA) NEGATIVE (NEGATIVE); LEUKOCYTE ESTERASE, URINE SMALL (NEGATIVE); NITRITE,URINE POSITIVE (NEGATIVE); OCCULT BLOOD,URINE LARGE (NEGATIVE); PROTEIN,URINE 100 mg/dL (NEGATIVE); UROBILINOGEN,URINE 0.2 (NORMAL) E.U./dL (NORMAL)
[2018-12-08 13:39] LABS: CLARITY,URINE CLOUDY (CLEAR); RBC,URINE TNTC /HPF (0-5); SQUAMOUS EPITHELIAL CELL,UR FEW Squamous (<= Few)
[2018-12-08 13:40] LABS: BACTERIA,URINE Few /HPF (None Seen); EPITHELIAL CELLS,UR FEW Transitional /HPF (<= Few)
[2018-12-08 13:49] VITALS: BP 145/87
== END 2018-12-08 15:10 | disposition home or self-care (01) ==
LOC: EDUNIT# → ED 12:21
DX: T83.83XA Hemorrhage due to genitourinary prosthetic devices, implants and grafts, initial encounter (principal); T83.511A Infection and inflammatory reaction due to indwelling urethral catheter, initial encounter; N39.0 Urinary tract infection, site not specified; B95.7 Other staphylococcus as the cause of diseases classified elsewhere; Y84.6 Urinary catheterization as the cause of abnormal reaction of the patient, or of later complication, without mention of misadventure at the time of the procedure; I69.928 Other speech and language deficits following unspecified cerebrovascular disease; F17.200 Nicotine dependence, unspecified, uncomplicated
CPT/HCPCS: 51798; 81001; 81003; 87077; 87086; 87181; 99283

== ENCOUNTER 2018-12-09 01:37 | Outpatient (CLI) | payer MEDICARE, MEDICAID | END 2018-12-09 01:38 | disposition critical access hospital (66) | LOC: EMS 01:37 | PROVIDERS: ATTEND Surgery | DX: R10.30 Lower abdominal pain, unspecified (principal); R39.9 Unspecified symptoms and signs involving the genitourinary system | CPT/HCPCS: A0425; A0429 ==

== ENCOUNTER 2018-12-09 02:04 | Emergency (ER) | payer MEDICARE, MEDICAID ==
--- NOTE | 2018-12-09 02:06 | ED Physician Documentation ---
PD HPI MALE - Stated complaint Stated Complaint: URINARY RETENTION - History obtained from History obtained from: Patient - History of Present Illness Timing - onset: How many hours ago (3) Timing - duration: Hours (3) Timing - details: Gradual onset, Constant, Waxing and waning Pain level now: 8 Associated symptoms: Unable to urinate Recently seen: Emergency Dept (T+R yesterday from this ED for hematuria. A pratt catheter that had been in place for a few weeks was removed prior to discharge from ED. He presents via ambulance due to 3 hours of urinary retention manifesting as inability to urinate despite urge to urinate and gradually increasing suprapubic pain and distention) Review of Systems Constitutional: denies: Fever, Chills, Sweats GI: denies: Abdominal Pain : reports: Unable to Void PD PAST MEDICAL HISTORY - Past Medical History Neuro: CVA : Retention Derm: Eczema - Past Surgical History Past Surgical History: Yes General: Cholecystectomy Ortho: Spine surgery - Present Medications Home Medications: Ambulatory Orders Medication Instructions Recorded Confirmed Tamsulosin HCl [Flomax] 0.4 mg PO DAILY #14 capsule 11/18/18 11/27/18 Nitrofurantoin Monohyd/M-Cryst 100 mg PO BID #10 capsule 12/08/18 [Macrobid 100 mg Capsule] Tamsulosin [Flomax] 0.4 mg PO DAILY #30 capsule 12/08/18 - Allergies Allergies/Adverse Reactions: Allergies Allergy/AdvReac Type Severity Reaction Status Date / Time acetaminophen [From Percocet] AdvReac Emesis Verified 12/09/18 02:14 oxycodone HCl * AdvReac Emesis Verified 12/09/18 02:14 [From Percocet] - Social History Does the pt smoke?: Yes Smoking Status: Current every day smoker Does the pt drink ETOH?: No Does the pt have substance abuse?: No - Immunizations Immunizations are current?: No - POLST Patient has POLST: No PD ED PE NORMAL - Vitals Vital signs reviewed: Yes - General General: Alert and oriented X 3, Well developed/nourished, Other (appears uncomfortable) - Abdomen Abdomen: Soft, Other (suprapubic fullness and tenderness to palpation) - Back Back: No CVA TTP Results - Vitals Vitals: Vital Signs - 24 hr 09/07/2412/09/18 12/09/18 02:12 02:52 03:20 Temperature 36.9 C Heart Rate 86 70 Respiratory 18 16 17 Rate Blood Pressure 116/69 116/66 O2 Saturation 95 95 Oxygen O2 Source Room air PD MEDICAL DECISION MAKING - ED course Complexity details: reviewed old records, re-evaluated patient, considered differential, d/w patient ED course: ED RN placed pratt catheter without difficulty or resistance, patient had resolution of symptoms concurrent with urine output into pratt bag of 600 cc clear yellow urine Departure - Departure Disposition: 01 Home, Self Care Clinical Impression: Acute urinary retention Condition: Good Instructions: ED Catheter Care Pratt, ED Retention Urinary Male Follow-Up: [facility] [Provider Group] Discharge Date/Time: 12/09/18 03:20
[2018-12-09 03:22] VITALS: BP 116/66
== END 2018-12-09 03:20 | disposition home or self-care (01) ==
LOC: EDUNIT# → ED 02:04
DX: R33.9 Retention of urine, unspecified (principal); F17.200 Nicotine dependence, unspecified, uncomplicated
CPT/HCPCS: 51798; 99281; 99283

== ENCOUNTER 2019-01-01 08:46 | Outpatient (CLI) | payer MEDICARE, MEDICAID | END 2019-01-01 08:47 | disposition critical access hospital (66) | LOC: EMS 08:46 | PROVIDERS: ATTEND Surgery | DX: T83.021A Displacement of indwelling urethral catheter, initial encounter (principal) | CPT/HCPCS: A0425; A0429 ==

== ENCOUNTER 2019-01-25 06:41 | Outpatient (CLI) | payer MEDICARE, MEDICAID | END 2019-01-25 06:42 | disposition critical access hospital (66) | LOC: EMS 06:41 | PROVIDERS: ATTEND Surgery | DX: T85.638A Leakage of other specified internal prosthetic devices, implants and grafts, initial encounter (principal) | CPT/HCPCS: A0425; A0429 ==

== ENCOUNTER 2019-01-25 07:10 | Emergency (ER) | payer MEDICARE, MEDICAID ==
--- NOTE | 2019-01-25 07:20 | ED Physician Documentation ---
PD HPI MALE - Stated complaint Stated Complaint: MALE - History obtained from History obtained from: Patient, EMS - History of Present Illness Timing - onset: How many days ago (he has had pratt for few months, and the current one about a month (changed peridocially). It has had lower flow for the past few days, and has not had much output overnight. Feeling full bladder.) Timing - details: Gradual onset, Still present Associated symptoms: Unable to urinate, Indwelling catheter PD HPI MALE CONTRIB FACTORS: Indwelling catheter Recently seen: Not recently seen Review of Systems Constitutional: denies: Fever, Chills, Myalgias GI: denies: Abdominal Pain, Nausea, Vomiting : denies: Hematuria, Discharge PD PAST MEDICAL HISTORY - Past Medical History Cardiovascular: None Respiratory: None Neuro: CVA Endocrine/Autoimmune: None GI: None : Retention HEENT: None Psych: None Musculoskeletal: None Derm: Eczema - Past Surgical History Past Surgical History: Yes General: Cholecystectomy Ortho: Spine surgery - Present Medications Home Medications: Ambulatory Orders Medication Instructions Recorded Confirmed Tamsulosin HCl [Flomax] 0.4 mg PO DAILY #14 capsule 11/18/18 11/27/18 Nitrofurantoin Monohyd/M-Cryst 100 mg PO BID #10 capsule 12/08/18 [Macrobid 100 mg Capsule] Tamsulosin [Flomax] 0.4 mg PO DAILY #30 capsule 12/08/18 Nitrofurantoin Monohyd/M-Cryst 100 mg PO BID #10 capsule 01/01/19 [Macrobid 100 mg Capsule] Sulfamethox/Trimeth 800/160 1 each PO BID #14 tablet 01/25/19 [Bactrim Ds 800/160] - Allergies Allergies/Adverse Reactions: Allergies Allergy/AdvReac Type Severity Reaction Status Date / Time oxycodone HCl * AdvReac Emesis Verified 01/01/19 09:28 [From Percocet] - Social History Does the pt smoke?: Yes Smoking Status: Current every day smoker Does the pt drink ETOH?: No Does the pt have substance abuse?: No - Immunizations Immunizations are current?: No - POLST Patient has POLST: No PD ED PE NORMAL - Vitals Vital signs reviewed: Yes - General General: Alert and oriented X 3, No acute distress, Well developed/nourished - Abdomen Abdomen: Soft, Other (suprapubic fullness and tenderness c/w full bladder. ) - Male Male : Rn Anesthetist present, Other (normal pratt in place without lesions at meatus. ) - Derm Derm: Normal color, Warm and dry Results - Vitals Vitals: Vital Signs - 24 hr 01/25/19 01/25/19 01/25/19 07:12 08:23 09:07 Temperature 36.9 C 36.9 C 36.8 C Heart Rate 77 72 70 Respiratory 18 16 16 Rate Blood Pressure 185/97 H 128/96 H 122/92 H O2 Saturation 98 97 97 Oxygen O2 Source Room air - Labs Labs: Laboratory Tests 01/25/19 07:40 Urine Color YELLOW Urine Clarity CLOUDY Urine pH 7.0 Ur Specific [place] 1.015 Urine Protein TRACE Urine Glucose (UA) NEGATIVE Urine Ketones NEGATIVE Urine Occult Blood LARGE H Urine Nitrite POSITIVE H Urine Bilirubin NEGATIVE Urine Urobilinogen 0.2 (NORMAL) Ur Leukocyte Esterase TRACE H Urine RBC TNTC H Urine WBC 4-5 Ur Epithelial Cells RARE Transitional Ur Squamous Epith Cells NONE SEEN Urine Bacteria Many H Urine Mucus Few Strands Ur Microscopic Review INDICATED Urine Culture Comments INDICATED PD MEDICAL DECISION MAKING - ED course Complexity details: considered differential (pratt changed and good output throught it. UA showing UTI. ), d/w patient Departure - Departure Disposition: 01 Home, Self Care Clinical Impression: Urinary retention Pratt catheter problem Qualifiers: Encounter type: initial encounter Qualified Code(s): T83.9XXA - Unspecified complication of genitourinary prosthetic device, implant and graft, initial encounter UTI (urinary tract infection) due to urinary indwelling catheter Qualifiers: Indwelling urinary catheter type: indwelling urethral catheter Encounter type: initial encounter Qualified Code(s): T83.511A - Infection and inflammatory reaction due to indwelling urethral catheter, initial encounter Condition: Stable Record reviewed to determine appropriate education?: Yes Instructions: ED Catheter Care Pratt Follow-Up: Abelardo Tovar PA-C [Primary Care Provider] - Prescriptions: Sulfamethox/Trimeth 800/160 [Bactrim Ds 800/160] 1 each PO BID #14 tablet Comments: Continue usual Pratt catheter care. Hopefully this will drain well into you see the specialist at the upcoming appointment. There is sign of infection in the urine as well so take Bactrim twice daily for a week. Discharge Date/Time: 01/25/19 09:11
[2019-01-25 08:29] LABS: BILIRUBIN,URINE NEGATIVE (NEGATIVE); CLARITY,URINE CLOUDY (CLEAR); GLUCOSE, URINE (UA) NEGATIVE (NEGATIVE); KETONES,URINE (UA) NEGATIVE (NEGATIVE); LEUKOCYTE ESTERASE, URINE TRACE (NEGATIVE); NITRITE,URINE POSITIVE (NEGATIVE); OCCULT BLOOD,URINE LARGE (NEGATIVE); PROTEIN,URINE TRACE mg/dL (NEGATIVE); UROBILINOGEN,URINE 0.2 (NORMAL) E.U./dL (NORMAL)
[2019-01-25 08:40] LABS: BACTERIA,URINE Many /HPF (None Seen); MUCUS,URINE Few Strands; RBC,URINE TNTC /HPF (0-5); SQUAMOUS EPITHELIAL CELL,UR NONE SEEN (<= Few)
[2019-01-25 08:41] LABS: EPITHELIAL CELLS,UR RARE Transitional /HPF (<= Few)
[2019-01-25] MEDS ORDERED: SULFAMETH/TRIMETH DS 800/160 MG TABLET PO STA (08:43)
[2019-01-25 09:08] VITALS: BP 122/92
== END 2019-01-25 09:11 | disposition home or self-care (01) ==
LOC: EDUNIT# → ED 07:10
DX: R33.9 Retention of urine, unspecified (principal); T83.091A Other mechanical complication of indwelling urethral catheter, initial encounter; T83.511A Infection and inflammatory reaction due to indwelling urethral catheter, initial encounter; Y84.6 Urinary catheterization as the cause of abnormal reaction of the patient, or of later complication, without mention of misadventure at the time of the procedure; F17.200 Nicotine dependence, unspecified, uncomplicated
CPT/HCPCS: 51702; 51798; 81001; 87077; 87086; 87181; 99283; A9270; 81003

== ENCOUNTER 2019-02-14 09:02 | Outpatient (CLI) | payer MEDICARE, MEDICAID | END 2019-02-14 09:03 | disposition critical access hospital (66) | LOC: EMS 09:02 | PROVIDERS: ATTEND Surgery | DX: T83.038A Leakage of other urinary catheter, initial encounter (principal); R30.9 Painful micturition, unspecified | CPT/HCPCS: A0425; A0429 ==

== ENCOUNTER 2019-02-14 09:33 | Emergency (ER) | payer MEDICARE, MEDICAID ==
--- NOTE | 2019-02-14 09:42 | ED Physician Documentation ---
PD HPI MALE - Stated complaint Stated Complaint: MALE - History obtained from History obtained from: Patient - History of Present Illness Timing - onset: How many days ago (3) Timing - details: Abrupt onset Associated symptoms: Indwelling catheter, Baez problem Recently seen: Not recently seen - Additional information Additional information: This is a 73-year-old man who lives alone and has an indwelling catheter that he says has been in "forever". It was placed for a bladder infection and never removed. He is made 2 appointments with the urologist to follow-up but for some reason has not been able to make either appointment. He does not drive. He woke up 3 mornings ago with urine leaking around the catheter and is woken up each morning since then like that. He says there is extreme discomfort. He is not running a fever. He has not had nausea or vomiting. He has a speech impediment and has a difficulty providing and assisting with history. Review of Systems Cardiac: reports: Other (Has known cardiac murmur) Respiratory: denies: Dyspnea GI: reports: Abdominal Pain ("Extreme discomfort"). denies: Nausea, Vomiting : reports: Baez Problem (Urine leaking around the Baez catheter) PD PAST MEDICAL HISTORY - Past Medical History Cardiovascular: None Respiratory: None Neuro: CVA Endocrine/Autoimmune: None GI: None : Retention HEENT: None Psych: None Musculoskeletal: None Derm: Eczema - Past Surgical History Past Surgical History: Yes General: Cholecystectomy Ortho: Spine surgery - Present Medications Home Medications: Ambulatory Orders Medication Instructions Recorded Confirmed Tamsulosin HCl [Flomax] 0.4 mg PO DAILY #14 capsule 11/18/18 11/27/18 Nitrofurantoin Monohyd/M-Cryst 100 mg PO BID #10 capsule 12/08/18 [Macrobid 100 mg Capsule] Tamsulosin [Flomax] 0.4 mg PO DAILY #30 capsule 12/08/18 Nitrofurantoin Monohyd/M-Cryst 100 mg PO BID #10 capsule 01/01/19 [Macrobid 100 mg Capsule] Sulfamethox/Trimeth 800/160 1 each PO BID #14 tablet 01/25/19 [Bactrim Ds 800/160] Sulfamethox/Trimeth 800/160 1 each PO BID #14 tablet 02/14/19 [Bactrim Ds 800/160] - Allergies Allergies/Adverse Reactions: Allergies Allergy/AdvReac Type Severity Reaction Status Date / Time oxycodone HCl * AdvReac Emesis Verified 01/01/19 09:28 [From Percocet] - Social History Does the pt smoke?: Yes Smoking Status: Current every day smoker Does the pt drink ETOH?: No Does the pt have substance abuse?: No - Immunizations Immunizations are current?: No - POLST Patient has POLST: No PD ED PE NORMAL - Vitals Vital signs reviewed: Yes - General General: Alert and oriented X 3, No acute distress, Well developed/nourished - HEENT HEENT: Atraumatic, Moist mucous membranes, Other (No scleral icterus) - Cardiac Cardiac: RRR, Other (3/6 systolic murmur heard at the apex.) - Respiratory Respiratory: No respiratory distress, Clear bilaterally - Abdomen Abdomen: Normal bowel sounds, Soft, Non tender - Male Male : Other (There was 350 cc of cloudy urine in the Baez catheter bag and residual 300 cc of urine in his bladder by the bladder scanner. The nursing staff is can irrigate the Baez. There is no blood in the urine or at the urethral meatus.) - Derm Derm: Normal color, Warm and dry, No rash Results - Vitals Vitals: Vital Signs - 24 hr 02/14/19 02/14/19 09:35 12:56 Temperature 36.9 C 36.7 C Heart Rate 70 77 Respiratory 16 18 Rate Blood Pressure 146/84 H 167/98 H O2 Saturation 99 100 Oxygen O2 Source Room air - Labs Labs: Microbiology 02/14/19 11:30 Urine Culture - Preliminary Urine,Clean Catch Laboratory Tests 02/14/19 11:30 Urine Color YELLOW Urine Clarity [place]. CLOUDY Urine pH 7.5 Ur Specific [place] 1.010 Urine Protein NEGATIVE Urine Glucose (UA) NEGATIVE Urine Ketones NEGATIVE Urine Occult Blood MODERATE H Urine Nitrite POSITIVE H Urine Bilirubin NEGATIVE Urine Urobilinogen 0.2 (NORMAL) Ur Leukocyte Esterase MODERATE H Urine RBC 6-10 H Urine WBC 6-10 H Urine WBC Clumps PRESENT Ur Squamous Epith Cells NONE SEEN Urine Bacteria Moderate H Ur Microscopic Review INDICATED Urine Culture Comments INDICATED PD MEDICAL DECISION MAKING - ED course Complexity details: reviewed old records, reviewed results, d/w patient ED course: The Baez catheter was plugged and could not be irrigated. It was removed and the patient had 200 cc spontaneous void. His bladder scan that showed over 300 cc in the urine. Urine does look infected with white blood cells. Prescribed Bactrim. I discussed with him about trialing not having the catheter in however he is pretty insistent that if we do not put the catheter in he will pee all over himself and then will not be able to urinate. 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 He is encouraged to keep an appointment with the urologist. Departure - Departure Disposition: Home, Self Care Clinical Impression: Urinary retention UTI (urinary tract infection) due to urinary indwelling catheter Qualifiers: Indwelling urinary catheter type: indwelling urethral catheter Encounter type: initial encounter Qualified Code(s): T83.511A - Infection and inflammatory reaction due to indwelling urethral catheter, initial encounter Condition: Good Instructions: ED UTI Cystitis Male Follow-Up: Abelardo Tovar PA-C [Primary Care Provider] - Prescriptions: Sulfamethox/Trimeth 800/160 [Bactrim Ds 800/160] 1 each PO BID #14 tablet Comments: Take the Bactrim as prescribed. If you have any hope of having this catheter removed you need to follow-up with urologist. Perhaps you could plan appointment on a day when someone would be able to take you to that appointment. Return if you have any further problems with the catheter. Discharge Date/Time: 02/14/19 13:00
[2019-02-14 12:03] LABS: BILIRUBIN,URINE NEGATIVE (NEGATIVE); GLUCOSE, URINE (UA) NEGATIVE (NEGATIVE); KETONES,URINE (UA) NEGATIVE (NEGATIVE); LEUKOCYTE ESTERASE, URINE MODERATE (NEGATIVE); NITRITE,URINE POSITIVE (NEGATIVE); OCCULT BLOOD,URINE MODERATE (NEGATIVE); PH,URINE 7.5 PH (5.0-7.5); PROTEIN,URINE NEGATIVE (NEGATIVE); UROBILINOGEN,URINE 0.2 (NORMAL) E.U./dL (NORMAL)
[2019-02-14 12:07] LABS: CLARITY,URINE SL. CLOUDY (CLEAR)
[2019-02-14 12:19] LABS: BACTERIA,URINE Moderate /HPF (None Seen); SQUAMOUS EPITHELIAL CELL,UR NONE SEEN (<= Few); WBC CLUMPS,URINE PRESENT
[2019-02-14] MEDS ORDERED: SULFAMETH/TRIMETH DS 800/160 MG TABLET PO STA (12:37)
[2019-02-14 12:58] VITALS: BP 167/98
== END 2019-02-14 13:00 | disposition home or self-care (01) ==
LOC: EDUNIT# → ED 09:33
DX: T83.511A Infection and inflammatory reaction due to indwelling urethral catheter, initial encounter (principal); F17.200 Nicotine dependence, unspecified, uncomplicated
CPT/HCPCS: 81001; 87077; 87086; 99283; 99284; A9270; 81003; 87181

== ENCOUNTER 2019-03-21 14:40 | Outpatient (CLI) | payer MEDICARE, MEDICAID | END 2019-03-21 14:41 | disposition critical access hospital (66) | LOC: EMS 14:40 | PROVIDERS: ATTEND Surgery | DX: T85.618A Breakdown (mechanical) of other specified internal prosthetic devices, implants and grafts, initial encounter (principal); R21 Rash and other nonspecific skin eruption | CPT/HCPCS: A0425; A0429 ==

== ENCOUNTER 2019-03-21 15:12 | Emergency (ER) | payer MEDICARE, MEDICAID ==
[2019-03-21 15:21] VITALS: BP 146/92
--- NOTE | 2019-03-21 15:24 | ED Physician Documentation ---
PD HPI MALE - Stated complaint Stated Complaint: LEAK IN CATH - Chief complaint Chief Complaint: General - History obtained from History obtained from: Patient, EMS - History of Present Illness Timing - onset: Today Timing - duration: Hours Timing - details: Gradual onset, Still present Associated symptoms: Pratt problem PD HPI MALE CONTRIB FACTORS: Not sexually active Similar symptoms before: Diagnosis (pratt cath dysfunction) Recently seen: Not recently seen - Additional information Additional information: 73-year-old male has had a traumatic brain injury and 2 strokes has an indwelling Pratt catheter for urinary retention. He has had this catheter in place for about 6 months. He has had infection and he has had retention. He has been into the emergency department a number of times for problems with a Pratt catheter and today he has another problem. The states the catheter is plugged and will need to be replaced. He states that he does have an appointment to see Elio Palafox MD in [place] next Friday. He is arranging transportation through [employer]. He does live alone in his own home. Review of Systems Constitutional: denies: Fever Eyes: denies: Decreased vision Ears: denies: Ear pain Nose: denies: Congestion Throat: denies: Sore throat Cardiac: denies: Chest pain / pressure Respiratory: denies: Dyspnea, Cough GI: denies: Abdominal Pain, Nausea, Vomiting : reports: Pratt Problem Skin: denies: Rash Musculoskeletal: denies: Neck pain, Back pain, Extremity pain PD PAST MEDICAL HISTORY - Past Medical History Cardiovascular: None Respiratory: None Neuro: CVA Endocrine/Autoimmune: None GI: None : Retention HEENT: None Psych: None Musculoskeletal: None Derm: Eczema - Past Surgical History Past Surgical History: Yes General: Cholecystectomy Ortho: Spine surgery - Present Medications Home Medications: Ambulatory Orders Medication Instructions Recorded Confirmed Tamsulosin HCl [Flomax] 0.4 mg PO DAILY #14 capsule 11/18/18 11/27/18 Nitrofurantoin Monohyd/M-Cryst 100 mg PO BID #10 capsule 12/08/18 [Macrobid 100 mg Capsule] Tamsulosin [Flomax] 0.4 mg PO DAILY #30 capsule 12/08/18 Nitrofurantoin Monohyd/M-Cryst 100 mg PO BID #10 capsule 01/01/19 [Macrobid 100 mg Capsule] Sulfamethox/Trimeth 800/160 1 each PO BID #14 tablet 01/25/19 [Bactrim Ds 800/160] Sulfamethox/Trimeth 800/160 1 each PO BID #14 tablet 02/14/19 [Bactrim Ds 800/160] Sulfamethoxazole/Trimethoprim 1 each PO BID #14 tablet 03/21/19 [Sulfamethoxazole-Tmp Ds Tablet] - Allergies Allergies/Adverse Reactions: Allergies Allergy/AdvReac Type Severity Reaction Status Date / Time oxycodone HCl * AdvReac Emesis Verified 03/21/19 15:21 [From Percocet] - Social History Does the pt smoke?: Yes Smoking Status: Current every day smoker Does the pt drink ETOH?: No Does the pt have substance abuse?: No - Immunizations Immunizations are current?: No - POLST Patient has POLST: No PD ED PE NORMAL - Vitals Vital signs reviewed: Yes (hypertensive ) - General General: Alert and oriented X 3, No acute distress, Well developed/nourished - HEENT HEENT: Atraumatic, PERRL, EOMI - Respiratory Respiratory: No respiratory distress - Back Back: No CVA TTP, No spinal TTP - Derm Derm: Normal color, Warm and dry, No rash - Extremities Extremities: No deformity, No edema - Neuro Neuro: Alert and oriented X 3, job printer 2-12 intact, Other (speech is dysarthric) Eye Opening: Spontaneous Motor: Obeys Commands Verbal: Oriented GCS Score: 15 - Psych Psych: Normal mood, Normal affect Results - Vitals Vitals: Vital Signs - 24 hr 03/21/19 15:13 Temperature 37.0 C Heart Rate 74 Respiratory 14 Rate Blood Pressure 146/92 H O2 Saturation 100 Oxygen O2 Source Room air - Labs Labs: Laboratory Tests 03/21/19 15:33 Urine Color YELLOW Urine Clarity HAZY Urine pH 7.0 Ur Specific [place] 1.015 Urine Protein NEGATIVE Urine Glucose (UA) NEGATIVE Urine Ketones NEGATIVE Urine Occult Blood TRACE-INTA Urine Nitrite POSITIVE H Urine Bilirubin NEGATIVE Urine Urobilinogen 0.2 (NORMAL) Ur Leukocyte Esterase SMALL H Urine RBC 6-10 H Urine WBC >25 H Urine WBC Clumps PRESENT Ur Squamous Epith Cells NONE SEEN Amorphous Sediment Rare Urine Bacteria Many H Ur Microscopic Review INDICATED Urine Culture Comments INDICATED PD MEDICAL DECISION MAKING - ED course Complexity details: reviewed old records, reviewed results, re-evaluated patient, considered differential, d/w patient ED course: 73 y/o male with a pratt in place for the past 6 months has another pratt problem. He does indicate that he has an appointment to see the urologist in [facility] this coming week and he has arranged transportation. At the time of discharge the patient is inquiring about a urologist in [place] and we have provided him with Dr. Mejia's number. He has infection again today and we will place him on septra again. Departure - Departure Disposition: 01 Home, Self Care Clinical Impression: Pratt catheter problem Qualifiers: Encounter type: initial encounter Qualified Code(s): T83.9XXA - Unspecified complication of genitourinary prosthetic device, implant and graft, initial encounter UTI (urinary tract infection) due to urinary indwelling catheter Qualifiers: Indwelling urinary catheter type: indwelling urethral catheter Encounter type: initial encounter Qualified Code(s): T83.511A - Infection and inflammatory reaction due to indwelling urethral catheter, initial encounter Condition: Stable Instructions: ED Catheter Care Pratt, ED UTI Cystitis Male Follow-Up: Abelardo Tovar PA-C [Primary Care Provider] - Ric Mejia MD [Provider Admit Priv/Credential] - Prescriptions: Sulfamethoxazole/Trimethoprim [Sulfamethoxazole-Tmp Ds Tablet] 1 each PO BID #14 tablet
[2019-03-21 16:04] LABS: BILIRUBIN,URINE NEGATIVE (NEGATIVE); GLUCOSE, URINE (UA) NEGATIVE (NEGATIVE); KETONES,URINE (UA) NEGATIVE (NEGATIVE); LEUKOCYTE ESTERASE, URINE SMALL (NEGATIVE); NITRITE,URINE POSITIVE (NEGATIVE); OCCULT BLOOD,URINE TRACE-INTA (NEGATIVE); PROTEIN,URINE NEGATIVE (NEGATIVE); UROBILINOGEN,URINE 0.2 (NORMAL) E.U./dL (NORMAL)
[2019-03-21 16:09] LABS: CLARITY,URINE HAZY (CLEAR)
[2019-03-21 16:17] LABS: AMORPHOUS SEDIMENT,UR Rare /LPF; BACTERIA,URINE Many /HPF (None Seen); SQUAMOUS EPITHELIAL CELL,UR NONE SEEN (<= Few); WBC CLUMPS,URINE PRESENT
== END 2019-03-21 17:10 | disposition home or self-care (01) ==
LOC: EDUNIT# → ED 15:12
DX: T83.031A Leakage of indwelling urethral catheter, initial encounter (principal); T83.511A Infection and inflammatory reaction due to indwelling urethral catheter, initial encounter; N39.0 Urinary tract infection, site not specified; Y84.6 Urinary catheterization as the cause of abnormal reaction of the patient, or of later complication, without mention of misadventure at the time of the procedure; I69.322 Dysarthria following cerebral infarction; F17.200 Nicotine dependence, unspecified, uncomplicated
CPT/HCPCS: 81001; 81003; 87077; 87086; 99283

== ENCOUNTER 2019-04-22 10:17 | Outpatient (CLI) | payer MEDICARE, MEDICAID | END 2019-04-22 10:18 | disposition critical access hospital (66) | LOC: EMS 10:17 | PROVIDERS: ATTEND Surgery | DX: R39.9 Unspecified symptoms and signs involving the genitourinary system (principal) | CPT/HCPCS: A0425; A0429 ==

== ENCOUNTER 2019-04-22 10:51 | Emergency (ER) | payer MEDICARE, MEDICAID ==
--- NOTE | 2019-04-22 11:09 | ED Physician Documentation ---
PD HPI MALE - Stated complaint Stated Complaint: CATHETER BLOCKED - Chief complaint Chief Complaint: General - History obtained from History obtained from: Patient - History of Present Illness Timing - onset: How many days ago (3) Timing - duration: Days (3) Timing - details: Gradual onset, Waxing and waning (decreased urine output from pratt to legbag for past 3 days, with urine coming around the pratt. He has feeling of still bladder fullness/ incomplete emptying.) PD HPI MALE CONTRIB FACTORS: Not sexually active, Indwelling catheter Similar symptoms before: Has not had sx before Recently seen: Not recently seen Review of Systems Constitutional: denies: Fever, Chills GI: denies: Nausea, Vomiting : reports: Unable to Void. denies: Discharge Skin: denies: Rash, Lesions PD PAST MEDICAL HISTORY - Past Medical History Cardiovascular: None Respiratory: None Neuro: CVA Endocrine/Autoimmune: None GI: None : Retention HEENT: None Psych: None Musculoskeletal: None Derm: Eczema - Past Surgical History Past Surgical History: Yes General: Cholecystectomy Ortho: Spine surgery - Present Medications Home Medications: Ambulatory Orders Medication Instructions Recorded Confirmed Tamsulosin HCl [Flomax] 0.4 mg PO DAILY #14 capsule 11/18/18 11/27/18 Nitrofurantoin Monohyd/M-Cryst 100 mg PO BID #10 capsule 12/08/18 [Macrobid 100 mg Capsule] Tamsulosin [Flomax] 0.4 mg PO DAILY #30 capsule 12/08/18 Nitrofurantoin Monohyd/M-Cryst 100 mg PO BID #10 capsule 01/01/19 [Macrobid 100 mg Capsule] Sulfamethox/Trimeth 800/160 1 each PO BID #14 tablet 01/25/19 [Bactrim Ds 800/160] Sulfamethox/Trimeth 800/160 1 each PO BID #14 tablet 02/14/19 [Bactrim Ds 800/160] Sulfamethoxazole/Trimethoprim 1 each PO BID #14 tablet 03/21/19 [Sulfamethoxazole-Tmp Ds Tablet] Doxycycline Monohydrate 100 mg PO BID #14 tablet 04/22/19 - Allergies Allergies/Adverse Reactions: Allergies Allergy/AdvReac Type Severity Reaction Status Date / Time oxycodone HCl * AdvReac Emesis Verified 04/22/19 10:54 [From Percocet] - Social History Does the pt smoke?: Yes Smoking Status: Current every day smoker Does the pt drink ETOH?: No Does the pt have substance abuse?: No - Immunizations Immunizations are current?: No - POLST Patient has POLST: No PD ED PE NORMAL - Vitals Vital signs reviewed: Yes - General General: Alert and oriented X 3, No acute distress, Well developed/nourished - HEENT HEENT: Pharynx benign - Abdomen Abdomen: Normal bowel sounds, Soft, Other (mild distension/suprapubid tenderness.) - Male Male : Other - Rectal Rectal: Deferred - Back Back: No CVA TTP - Derm Derm: Normal color, Warm and dry - Neuro Neuro: Alert and oriented X 3, No motor deficit, Normal speech Results - Vitals Vitals: Oxygen O2 Source Room air - Labs Labs: Microbiology 04/22/19 11:20 Urine Culture - Preliminary Urine,Catheterized Laboratory Tests 04/22/19 11:20 Urine Color YELLOW Urine Clarity CLOUDY Urine pH 6.5 Ur Specific [place] 1.020 Urine Protein 30 H Urine Glucose (UA) NEGATIVE Urine Ketones NEGATIVE Urine Occult Blood LARGE H Urine Nitrite POSITIVE H Urine Bilirubin NEGATIVE Urine Urobilinogen 0.2 (NORMAL) Ur Leukocyte Esterase MODERATE H Urine RBC TNTC H Urine WBC 11-25 H Ur Squamous Epith Cells RARE Squamous Urine Bacteria Few Ur Microscopic Review INDICATED Urine Culture Comments INDICATED PD MEDICAL DECISION MAKING - ED course Complexity details: reviewed results (pratt not draining much with a large post void residual. Will change pratt presuming is clogged.), considered differential (folley), d/w patient Departure - Departure Disposition: 01 Home, Self Care Clinical Impression: Complication, blocked Pratt catheter Qualifiers: Encounter type: initial encounter Qualified Code(s): T83.091A - Other mechanical complication of indwelling urethral catheter, initial encounter UTI (urinary tract infection) due to urinary indwelling catheter Qualifiers: Indwelling urinary catheter type: indwelling urethral catheter Encounter type: initial encounter Qualified Code(s): T83.511A - Infection and inflammatory reaction due to indwelling urethral catheter, initial encounter Condition: Stable Record reviewed to determine appropriate education?: Yes Instructions: ED UTI Cystitis Male Follow-Up: Abelardo Tovar PA-C [Primary Care Provider] - Ric Mejia MD [Provider Admit Priv/Credential] - Prescriptions: Doxycycline Monohydrate 100 mg PO BID #14 tablet Comments: Stay well-hydrated. Continue usual catheter care. There is signs of an infection so take doxycycline twice daily for a week. Follow-up with urology, call Dr. Meija as he is doing clinics now in [facility]. Ask to see him when he is in [facility]. Discharge Date/Time: 04/22/19 12:24
[2019-04-22 11:30] LABS: BILIRUBIN,URINE NEGATIVE (NEGATIVE); GLUCOSE, URINE (UA) NEGATIVE (NEGATIVE); KETONES,URINE (UA) NEGATIVE (NEGATIVE); LEUKOCYTE ESTERASE, URINE MODERATE (NEGATIVE); NITRITE,URINE POSITIVE (NEGATIVE); OCCULT BLOOD,URINE LARGE (NEGATIVE); PH,URINE 6.5 PH (5.0-7.5); PROTEIN,URINE 30 mg/dL (NEGATIVE); UROBILINOGEN,URINE 0.2 (NORMAL) E.U./dL (NORMAL)
[2019-04-22 11:33] LABS: CLARITY,URINE CLOUDY (CLEAR)
[2019-04-22 11:49] LABS: BACTERIA,URINE Few /HPF (None Seen); RBC,URINE TNTC /HPF (0-5); SQUAMOUS EPITHELIAL CELL,UR RARE Squamous (<= Few)
[2019-04-22 12:24] VITALS: BP 158/97
== END 2019-04-22 12:24 | disposition home or self-care (01) ==
LOC: EDUNIT# → ED 10:51
DX: T83.091A Other mechanical complication of indwelling urethral catheter, initial encounter (principal); T83.511A Infection and inflammatory reaction due to indwelling urethral catheter, initial encounter; N39.0 Urinary tract infection, site not specified; F17.200 Nicotine dependence, unspecified, uncomplicated; Y73.1 Therapeutic (nonsurgical) and rehabilitative gastroenterology and urology devices associated with adverse incidents
CPT/HCPCS: 51702; 81001; 81003; 87086; 99283; 99284

== ENCOUNTER 2019-05-14 10:32 | Outpatient (CLI) | payer MEDICARE, MEDICAID | END 2019-05-14 10:33 | disposition critical access hospital (66) | LOC: EMS 10:32 | PROVIDERS: ATTEND Surgery | DX: T83.031A Leakage of indwelling urethral catheter, initial encounter (principal) | CPT/HCPCS: A0425; A0429 ==

== ENCOUNTER 2019-05-14 11:05 | Emergency (ER) | payer MEDICARE, MEDICAID ==
[2019-05-14 12:11] LABS: BILIRUBIN,URINE NEGATIVE (NEGATIVE); GLUCOSE, URINE (UA) NEGATIVE (NEGATIVE); KETONES,URINE (UA) NEGATIVE (NEGATIVE); LEUKOCYTE ESTERASE, URINE MODERATE (NEGATIVE); NITRITE,URINE POSITIVE (NEGATIVE); OCCULT BLOOD,URINE MODERATE (NEGATIVE); PROTEIN,URINE NEGATIVE (NEGATIVE); UROBILINOGEN,URINE 0.2 (NORMAL) E.U./dL (NORMAL)
[2019-05-14 12:12] LABS: CLARITY,URINE HAZY (CLEAR)
[2019-05-14 12:27] LABS: BACTERIA,URINE Many /HPF (None Seen); RBC,URINE TNTC /HPF (0-5); SQUAMOUS EPITHELIAL CELL,UR FEW Squamous (<= Few); WBC CLUMPS,URINE PRESENT
[2019-05-14] MEDS ORDERED: SULFAMETH/TRIMETH DS 800/160 MG TABLET PO STA (12:50)
--- NOTE | 2019-05-14 12:52 | ED Physician Documentation ---
History of Present Illness - Stated complaint Stated Complaint: CATHETER ISSUE - Chief complaint Chief Complaint: General - History obtained from History obtained from: Patient (73-year-old gentleman with a chronic indwelling Baez catheter, it became blocked with purulent urine overnight and was leaking. He denies any fevers.) Review of Systems Constitutional: denies: Fever, Chills GI: denies: Abdominal Pain, Nausea, Vomiting Musculoskeletal: denies: Back pain PD PAST MEDICAL HISTORY - Past Medical History Cardiovascular: None Respiratory: None Neuro: CVA Endocrine/Autoimmune: None GI: None : Retention HEENT: None Psych: None Musculoskeletal: None Derm: Eczema - Past Surgical History Past Surgical History: Yes General: Cholecystectomy Ortho: Spine surgery - Present Medications Home Medications: Ambulatory Orders Medication Instructions Recorded Confirmed Tamsulosin HCl [Flomax] 0.4 mg PO DAILY #14 capsule 11/18/18 11/27/18 Nitrofurantoin Monohyd/M-Cryst 100 mg PO BID #10 capsule 12/08/18 [Macrobid 100 mg Capsule] Tamsulosin [Flomax] 0.4 mg PO DAILY #30 capsule 12/08/18 Nitrofurantoin Monohyd/M-Cryst 100 mg PO BID #10 capsule 01/01/19 [Macrobid 100 mg Capsule] Sulfamethox/Trimeth 800/160 1 each PO BID #14 tablet 01/25/19 [Bactrim Ds 800/160] Sulfamethox/Trimeth 800/160 1 each PO BID #14 tablet 02/14/19 [Bactrim Ds 800/160] Sulfamethoxazole/Trimethoprim 1 each PO BID #14 tablet 03/21/19 [Sulfamethoxazole-Tmp Ds Tablet] Doxycycline Monohydrate 100 mg PO BID #14 tablet 04/22/19 Sulfamethoxazole/Trimethoprim 1 each PO BID 10 Days #20 tablet 05/14/19 [Sulfamethoxazole-Tmp Ds Tablet] - Allergies Allergies/Adverse Reactions: Allergies Allergy/AdvReac Type Severity Reaction Status Date / Time oxycodone HCl * AdvReac Emesis Verified 05/14/19 11:32 [From Percocet] - Social History Does the pt smoke?: Yes Smoking Status: Current every day smoker Does the pt drink ETOH?: No Does the pt have substance abuse?: No - Immunizations Immunizations are current?: No - POLST Patient has POLST: No PD ED PE NORMAL - Vitals Vital signs reviewed: Yes - General General: Alert and oriented X 3, No acute distress - Abdomen Abdomen: Normal bowel sounds, Soft, Non tender - Male Male : Other (At the time of my evaluation the catheter had already been changed, also emptied. It seems to be draining well.) - Extremities Extremities: No edema, No calf tenderness / cord - Neuro Neuro: Alert and oriented X 3, Normal speech Results - Vitals Vitals: Vital Signs - 24 hr 05/14/19 11:28 Temperature 36.9 C Heart Rate 76 Respiratory 18 Rate Blood Pressure 133/80 H O2 Saturation 99 Oxygen O2 Source Room air - Labs Labs: Laboratory Tests 05/14/19 12:00 Urine Color YELLOW Urine Clarity HAZY Urine pH 6.0 Ur Specific [place] 1.020 Urine Protein NEGATIVE Urine Glucose (UA) NEGATIVE Urine Ketones NEGATIVE Urine Occult Blood MODERATE H Urine Nitrite POSITIVE H Urine Bilirubin NEGATIVE Urine Urobilinogen 0.2 (NORMAL) Ur Leukocyte Esterase MODERATE H Urine RBC TNTC H Urine WBC >25 H Urine WBC Clumps PRESENT Ur Squamous Epith Cells FEW Squamous Urine Bacteria Many H Ur Microscopic Review INDICATED Urine Culture Comments INDICATED PD MEDICAL DECISION MAKING - ED course ED course: His Baez catheter was replaced, I assume infection had blocked the catheter and that is why this happened. He is started on Bactrim after review of prior urine cultures showing mostly staph epidermidis. He has an appointment with urologist later this month. Departure - Departure Disposition: 01 Home, Self Care Clinical Impression: Urinary retention Complication, blocked Baez catheter Qualifiers: Encounter type: initial encounter Qualified Code(s): T83.091A - Other mechanical complication of indwelling urethral catheter, initial encounter UTI (urinary tract infection) due to urinary indwelling catheter Qualifiers: Indwelling urinary catheter type: indwelling urethral catheter Encounter type: initial encounter Qualified Code(s): T83.511A - Infection and inflammatory reaction due to indwelling urethral catheter, initial encounter; N39.0 - Urinary tract infection, site not specified Condition: Good Record reviewed to determine appropriate education?: Yes Instructions: ED Catheter Care Baez Prescriptions: Sulfamethoxazole/Trimethoprim [Sulfamethoxazole-Tmp Ds Tablet] 1 each PO BID 10 Days #20 tablet Comments: Follow-up with urologist later this month as scheduled. Return for new or worsening symptoms. We will culture your urine, the results should be done in 48-72 hours. If an antibiotic change is necessary we will call you. Return if worse in the meantime, especially if you develop increasing flank pain, fevers, or cannot keep down the medication.
[2019-05-14 12:57] VITALS: BP 129/88
== END 2019-05-14 13:44 | disposition home or self-care (01) ==
LOC: EDUNIT# → ED 11:05
DX: T83.091A Other mechanical complication of indwelling urethral catheter, initial encounter (principal); T83.511A Infection and inflammatory reaction due to indwelling urethral catheter, initial encounter; Y84.6 Urinary catheterization as the cause of abnormal reaction of the patient, or of later complication, without mention of misadventure at the time of the procedure; R33.9 Retention of urine, unspecified; F17.200 Nicotine dependence, unspecified, uncomplicated
CPT/HCPCS: 51702; 51798; 81001; 87086; 99283; A9270; 81003

== ENCOUNTER 2019-12-28 11:25 | Outpatient (CLI) | payer MEDICARE, MEDICAID | END 2019-12-28 11:26 | disposition critical access hospital (66) | LOC: EMS 11:25 | PROVIDERS: ATTEND Surgery | DX: M54.9 Dorsalgia, unspecified (principal) | CPT/HCPCS: A0425; A0429 ==

== ENCOUNTER 2019-12-28 11:55 | Emergency (ER) | payer MEDICARE, MEDICAID ==
--- NOTE | 2019-12-28 12:02 | ED Physician Documentation ---
History of Present Illness - Stated complaint Stated Complaint: GLF - History obtained from History obtained from: Patient - History of Present Illness Timing: How many days ago (2) - Additonal information Additional information: 74 yo M w/ pmh of COPD, TBI, seizures, tobacco abuse who presents w/ right rib pain after a fall 2 days ago. Pt states he has issues with coordination and balance often and he turned too quickly in the kitchen and got off balance and stumbled. His right ribs hit the counter. He denies any other injuries, did not hit his head, lose consciousness, or injure extremities. He was able to get himself up. He presents today due to ongoing right rib pain. Taking aspirin without relief. Denies any fever, chills, cough or URI sx, chest pain, dyspnea, abd pain, n/v/d, or urinary sx. Review of Systems Constitutional: reports: Reviewed and negative Cardiac: reports: Reviewed and negative Respiratory: reports: Reviewed and negative GI: reports: Reviewed and negative : reports: Reviewed and negative Skin: reports: Reviewed and negative Musculoskeletal: reports: Other (right lower rib pain) Neurologic: reports: Reviewed and negative Psychiatric: reports: Reviewed and negative PD PAST MEDICAL HISTORY - Past Medical History Cardiovascular: None Respiratory: None Neuro: CVA Endocrine/Autoimmune: None GI: None : Retention HEENT: None Psych: None Musculoskeletal: None Derm: Eczema - Past Surgical History Past Surgical History: Yes General: Cholecystectomy Ortho: Spine surgery - Present Medications Home Medications: Ambulatory Orders Medication Instructions Recorded Confirmed Lidocaine Patch 5% [Lidoderm Patch] 1 patch TOP DAILY PRN #10 patch 12/28/19 - Allergies Allergies/Adverse Reactions: Allergies Allergy/AdvReac Type Severity Reaction Status Date / Time oxycodone HCl * AdvReac Emesis Verified 12/28/19 12:00 [From Percocet] - Social History Does the pt smoke?: Yes Smoking Status: Current every day smoker Does the pt drink ETOH?: No Does the pt have substance abuse?: No - Immunizations Immunizations are current?: No - POLST Patient has POLST: No PD ED PE NORMAL - Vitals Vital signs reviewed: Yes - General General: Alert and oriented X 3, No acute distress, Well developed/nourished - HEENT HEENT: Atraumatic, PERRL, EOMI - Neck Neck: Supple, no meningeal sign, No adenopathy - Cardiac Cardiac: RRR, Other (3/6 murmur heard throughout) - Respiratory Respiratory: No respiratory distress, Clear bilaterally - Abdomen Abdomen: Normal bowel sounds, Soft, Non tender, Non distended - Back Back: No CVA TTP, No spinal TTP - Derm Derm: Normal color, Warm and dry, No rash - Extremities Extremities: No deformity, No tenderness to palpate, Normal ROM s pain, No edema, No calf tenderness / cord - Neuro Neuro: Alert and oriented X 3 Eye Opening: Spontaneous Motor: Obeys Commands Verbal: Oriented GCS Score: 15 - Psych Psych: Normal mood, Normal affect - Free text exam Free text exam: tender w/ palpation of right lower ribs mid axillary line, no crepitus or obvious deformity. Results - Vitals Vitals: Vital Signs - 24 hr 12/28/19 12/28/19 12:00 13:37 Temperature 36.9 C 36.7 C Heart Rate 74 68 Respiratory 20 16 Rate Blood Pressure 150/71 H 145/69 H O2 Saturation 98 98 Oxygen O2 Source Room air PD MEDICAL DECISION MAKING - ED course Complexity details: reviewed results, re-evaluated patient, considered differential, d/w patient ED course: 74 yo M presented after a fall 2 days ago where he hit his right ribs on the counter. He was found today via xray to have fractures of right ribs 8 & 9, no pneumothorax. He was advised of findings and supportive measures including self splinting, rest, deep breathing, and prn pain control recommended. Patient also noted to have a heart murmur, states he believes this is not new. Last echo in 2014 w/o acute findings. Advised pt to follow up with PCP within 1 week for evaluation. Return precautions reviewed in detail with the patient. Departure - Departure Disposition: 01 Home, Self Care Clinical Impression: Rib fracture Condition: Good Instructions: ED Fx Rib Prescriptions: Lidocaine Patch 5% [Lidoderm Patch] 1 patch TOP DAILY PRN #10 patch PRN Reason: pain Comments: You presented after a fall and were found on xray to have fractured 2 ribs on the right side. The fractures will heal on their own with time, but will be uncomfortable. You may try self splinting (holding the ribs with a pillow) when you move or cough/deep breath to help with the pain. You may take tylenol or motrin and I have prescribed you a lidocaine patch for the pain. The pain should improve in the next 2-3 weeks. Please follow up in the ER if you develop shortness of breath, increasing pain, fever, cough, or otherwise worsening symptoms.
--- NOTE | 2019-12-28 13:49 | XRAY Report ---
PROCEDURE: Ribs w/PA Chest RT INDICATIONS: fall 2 days ago, pain lower ribs TECHNIQUE: There are 3 views of the right ribs were acquired, along with a single view chest. COMPARISON: CT chest dated 05/20/2014 FINDINGS: Surgical changes and devices: Surgical clips in the right upper abdomen are noted. Bones and chest wall: Acute, minimally displaced lateral right eighth and ninth rib fractures. No vega spicious bony lesions. Overlying soft tissues appear unremarkable. Lungs and pleura: No pleural effusions or pneumothorax. Lungs appear clear. Mediastinum: Mediastinal contours appear normal. Heart size is normal. IMPRESSION: 1. Acute lateral right eighth and ninth rib fractures. 2. Chest without acute cardiopulmonary abnormalities. Reviewed by: David Sutherland MD on 12/28/2019 1:47 PM PDT Approved by: David Sutherland MD on 12/28/2019 1:47 PM PDT Station ID: [id number]
[2019-12-28 15:23] VITALS: BP 152/93
== END 2019-12-28 15:50 | disposition home or self-care (01) ==
LOC: EDUNIT# → ED 11:55
DX: S22.41XA Multiple fractures of ribs, right side, initial encounter for closed fracture (principal); W01.198A Fall on same level from slipping, tripping and stumbling with subsequent striking against other object, initial encounter; Y92.000 Kitchen of unspecified non-institutional (private) residence as the place of occurrence of the external cause; F17.200 Nicotine dependence, unspecified, uncomplicated
CPT/HCPCS: 99283; 99284

== ENCOUNTER 2020-02-22 10:29 | Outpatient (CLI) | payer MEDICARE, MEDICAID | END 2020-02-22 10:30 | disposition critical access hospital (66) | LOC: EMS 10:29 | PROVIDERS: ATTEND Surgery | DX: R31.0 Gross hematuria (principal); R30.0 Dysuria | CPT/HCPCS: A0425; A0429 ==

== ENCOUNTER 2020-02-22 11:01 | Emergency (ER) | payer MEDICARE, MEDICAID ==
--- NOTE | 2020-02-22 11:06 | ED Physician Documentation ---
PD HPI MALE - Stated complaint Stated Complaint: HEMATURIA - History obtained from History obtained from: Patient - History of Present Illness Timing - onset: How many weeks ago (1) Timing - duration: Weeks (1) Timing - details: Gradual onset (He has noticed some urgency and discomfort with urination and only having small amounts output at the time. He has a feeling of incomplete emptying. No back pain or fevers or vomiting. Noted some blood in the urine last night and this morning), Waxing and waning Associated symptoms: Dysuria, Urinary frequency, Hematuria. No: Discharge, Scrotal swelling, Abdominal pain Similar symptoms before: Diagnosis (urinary retention with pratt in the past. No recent pratt.) Review of Systems Constitutional: denies: Fever, Chills Nose: denies: Rhinorrhea / runny nose, Congestion Throat: denies: Sore throat Respiratory: denies: Cough GI: denies: Nausea, Vomiting, Diarrhea : reports: Dysuria, Frequency, Hematuria PD PAST MEDICAL HISTORY - Past Medical History Cardiovascular: None Respiratory: None Neuro: CVA Endocrine/Autoimmune: None GI: None : Retention HEENT: None Psych: None Musculoskeletal: None Derm: Eczema - Past Surgical History Past Surgical History: Yes General: Cholecystectomy Ortho: Spine surgery - Present Medications Home Medications: Ambulatory Orders Medication Instructions Recorded Confirmed Lidocaine Patch 5% [Lidoderm Patch] 1 patch TOP DAILY PRN #10 patch 12/28/19 Phenazopyridine HCl [Pyridium] 100 mg PO TID PRN #15 tablet 02/22/20 Sulfamethox/Trimeth 800/160 1 each PO BID #14 tablet 02/22/20 [Bactrim Ds 800/160] - Allergies Allergies/Adverse Reactions: Allergies Allergy/AdvReac Type Severity Reaction Status Date / Time oxycodone HCl * AdvReac Emesis Verified 02/22/20 11:07 [From Percocet] - Social History Does the pt smoke?: Yes Smoking Status: Current every day smoker Does the pt drink ETOH?: No Does the pt have substance abuse?: No - Immunizations Immunizations are current?: No - POLST Patient has POLST: No PD ED PE NORMAL - Vitals Vital signs reviewed: Yes - General General: Alert and oriented X 3, No acute distress, Well developed/nourished - Male Male : Other (normal external genitalia. Able to urinate small amount bedside in urinal. Post void residual only 77 ml. Urine is cloudy. ) - Back Back: No CVA TTP - Derm Derm: Normal color, Warm and dry Results - Vitals Vitals: Vital Signs - 24 hr 02/22/20 02/22/20 11:07 12:03 Temperature 36.8 C 36.6 C Heart Rate 84 72 Respiratory 18 18 Rate Blood Pressure 147/106 H 155/99 H O2 Saturation 98 98 Oxygen O2 Source Room air - Labs Labs: Laboratory Tests 02/22/20 11:11 Urine Color YELLOW Urine Clarity SL. CLOUDY Urine pH 7.5 Ur Specific [place] 1.020 Urine Protein 100 H Urine Glucose (UA) NEGATIVE Urine Ketones NEGATIVE Urine Occult Blood MODERATE H Urine Nitrite NEGATIVE Urine Bilirubin NEGATIVE Urine Urobilinogen 0.2 (NORMAL) Ur Leukocyte Esterase MODERATE H Urine RBC 0-5 Urine WBC 11-25 H Urine WBC Clumps PRESENT Ur Squamous Epith Cells RARE Squamous Urine Bacteria Moderate H Ur Microscopic Review INDICATED Urine Culture Comments INDICATED PD MEDICAL DECISION MAKING - ED course Complexity details: reviewed results, considered differential, d/w patient Departure - Departure Disposition: 01 Home, Self Care Clinical Impression: Urinary frequency UTI (urinary tract infection) Qualifiers: Urinary tract infection type: acute cystitis Hematuria presence: with hematuria Qualified Code(s): N30.01 - Acute cystitis with hematuria Condition: Stable Record reviewed to determine appropriate education?: Yes Instructions: ED UTI Cystitis Male Prescriptions: Sulfamethox/Trimeth 800/160 [Bactrim Ds 800/160] 1 each PO BID #14 tablet Phenazopyridine HCl [Pyridium] 100 mg PO TID PRN #15 tablet PRN Reason: Abdominal Pain Comments: Your bladder scanner showed only a small amount left in the bladder so it does look like you are emptying appropriately. I presume the feeling of having to go often is from a bladder infection. We will treat this with antibiotics and phenazopyridine. Stay well-hydrated and continue your other medicines. Recheck if not improving well over the next 2 to 3 days. Discharge Date/Time: 02/22/20 12:22
[2020-02-22 11:19] LABS: BILIRUBIN,URINE NEGATIVE (NEGATIVE); GLUCOSE, URINE (UA) NEGATIVE (NEGATIVE); KETONES,URINE (UA) NEGATIVE (NEGATIVE); LEUKOCYTE ESTERASE, URINE MODERATE (NEGATIVE); NITRITE,URINE NEGATIVE (NEGATIVE); OCCULT BLOOD,URINE MODERATE (NEGATIVE); PH,URINE 7.5 PH (5.0-7.5); PROTEIN,URINE 100 mg/dL (NEGATIVE); UROBILINOGEN,URINE 0.2 (NORMAL) E.U./dL (NORMAL)
[2020-02-22 11:20] LABS: CLARITY,URINE SL. CLOUDY (CLEAR)
[2020-02-22 11:36] LABS: BACTERIA,URINE Moderate /HPF (None Seen); RBC,URINE 0-5 /HPF (0-5); SQUAMOUS EPITHELIAL CELL,UR RARE Squamous (<= Few); WBC CLUMPS,URINE PRESENT
[2020-02-22] MEDS ORDERED: SULFAMETH/TRIMETH DS 800/160 MG TABLET PO STA (11:38)
[2020-02-22] MEDS ORDERED: PHENAZOPYRIDINE 100 MG TABLET PO STA (11:38)
[2020-02-22 12:03] VITALS: BP 155/99
== END 2020-02-22 12:22 | disposition home or self-care (01) ==
LOC: EDUNIT# → ED 11:01
DX: N30.01 Acute cystitis with hematuria (principal); F17.200 Nicotine dependence, unspecified, uncomplicated
CPT/HCPCS: 51798; 81001; 87086; 99283; A9270; 81003

== ENCOUNTER 2020-03-14 09:44 | Outpatient (CLI) | payer MEDICARE, MEDICAID | END 2020-03-14 09:45 | disposition critical access hospital (66) | LOC: EMS 09:44 | PROVIDERS: ATTEND Surgery | DX: R69 Illness, unspecified (principal) | CPT/HCPCS: A0425; A0429 ==

== ENCOUNTER 2020-03-14 10:17 | Emergency (ER) | payer MEDICARE, MEDICAID ==
--- NOTE | 2020-03-14 10:34 | ED Physician Documentation ---
History of Present Illness - Stated complaint Stated Complaint: BLADDER INFECTION - Chief complaint Chief Complaint: UTI - History obtained from History obtained from: Patient - History of Present Illness Pain level max: 0 Pain level now: 0 - Additonal information Additional information: 74-year-old male presents to the emergency department stating he has had pain with urination for the past month. Has not seen his doctor. No fevers. No chills. He does feel like he empties his bladder completely. Does not use a catheter. No abdominal pain. No nausea or vomiting. No diarrhea or constipation. Review of Systems Ten Systems: 10 systems reviewed and negative Constitutional: denies: Fever, Chills Nose: denies: Rhinorrhea / runny nose, Congestion Cardiac: denies: Chest pain / pressure Respiratory: denies: Cough GI: denies: Abdominal Pain, Vomiting, Diarrhea : reports: Dysuria, Frequency, Hesitancy Skin: denies: Rash Musculoskeletal: denies: Neck pain, Back pain Neurologic: denies: Headache PD PAST MEDICAL HISTORY - Past Medical History Cardiovascular: None Respiratory: None Neuro: CVA Endocrine/Autoimmune: None GI: None : Retention HEENT: None Psych: None Musculoskeletal: None Derm: Eczema - Past Surgical History Past Surgical History: Yes General: Cholecystectomy Ortho: Spine surgery - Present Medications Home Medications: Ambulatory Orders Medication Instructions Recorded Confirmed Cephalexin [Keflex] 500 mg PO Q6H #28 capsule 03/14/20 - Allergies Allergies/Adverse Reactions: Allergies Allergy/AdvReac Type Severity Reaction Status Date / Time oxycodone HCl * AdvReac Emesis Verified 03/14/20 10:23 [From Percocet] - Social History Does the pt smoke?: Yes Smoking Status: Current every day smoker Does the pt drink ETOH?: No Does the pt have substance abuse?: No - Immunizations Immunizations are current?: No - POLST Patient has POLST: No PD ED PE NORMAL - Vitals Vital signs reviewed: Yes - General General: Alert and oriented X 3, No acute distress - HEENT HEENT: Moist mucous membranes - Neck Neck: Supple, no meningeal sign - Cardiac Cardiac: RRR - Respiratory Respiratory: No respiratory distress, Clear bilaterally - Abdomen Abdomen: Soft, Non tender, Non distended - 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), Other (Normal external exam) - Derm Derm: Warm and dry - Extremities Extremities: No edema - Neuro Neuro: Alert and oriented X 3 Results - Vitals Vitals: Vital Signs - 24 hr 03/14/20 03/14/20 03/14/20 10:24 10:51 12:29 Temperature 37.2 C Heart Rate 83 80 66 Respiratory 20 16 18 Rate Blood Pressure 132/80 H 130/81 H 158/84 H O2 Saturation 100 98 98 Oxygen O2 Source Room air - Labs Labs: Laboratory Tests 03/14/20 10:45 Urine Color YELLOW Urine Clarity CLOUDY Urine pH 6.5 Ur Specific [place] 1.025 Urine Protein 30 H Urine Glucose (UA) NEGATIVE Urine Ketones NEGATIVE Urine Occult Blood LARGE H Urine Nitrite POSITIVE H Urine Bilirubin NEGATIVE Urine Urobilinogen 0.2 (NORMAL) Ur Leukocyte Esterase LARGE H Urine RBC 11-25 H Urine WBC >25 H Ur Squamous Epith Cells RARE Squamous Urine Bacteria Few Urine Mucus Few Strands Ur Microscopic Review INDICATED Urine Culture Comments INDICATED PD MEDICAL DECISION MAKING - ED course Complexity details: considered differential, d/w patient ED course: Patient with a UTI. Given Rocephin here. Will place on antibiotics for home. Patient is well-appearing, nontoxic. Afebrile. Patient counseled regarding signs and symptoms for which I believe and urgent re-evaluation would be necessary. Patient with good understanding of and agreement to plan and is comfortable going home at this time This document was made in part using voice recognition software. While efforts are made to proofread this document, sound alike and grammatical errors may occur. Departure - Departure Disposition: 01 Home, Self Care Clinical Impression: UTI (urinary tract infection) Qualifiers: Urinary tract infection type: acute cystitis Hematuria presence: without hematuria Qualified Code(s): N30.00 - Acute cystitis without hematuria Condition: Good Instructions: ED UTI Cystitis Male Follow-Up: your,doctor in 1 week [Other] Prescriptions: Cephalexin [Keflex] 500 mg PO Q6H #28 capsule Comments: You do appear to have a urinary tract infection today. Follow-up with your doctor for further care. Return if you worsen. Discharge Date/Time: 03/14/20 12:41
[2020-03-14 10:58] LABS: BILIRUBIN,URINE NEGATIVE (NEGATIVE); GLUCOSE, URINE (UA) NEGATIVE (NEGATIVE); KETONES,URINE (UA) NEGATIVE (NEGATIVE); LEUKOCYTE ESTERASE, URINE LARGE (NEGATIVE); NITRITE,URINE POSITIVE (NEGATIVE); OCCULT BLOOD,URINE LARGE (NEGATIVE); PH,URINE 6.5 PH (5.0-7.5); PROTEIN,URINE 30 mg/dL (NEGATIVE); UROBILINOGEN,URINE 0.2 (NORMAL) E.U./dL (NORMAL)
[2020-03-14 10:59] LABS: CLARITY,URINE CLOUDY (CLEAR)
[2020-03-14 11:12] LABS: BACTERIA,URINE Few /HPF (None Seen); MUCUS,URINE Few Strands; SQUAMOUS EPITHELIAL CELL,UR RARE Squamous (<= Few)
[2020-03-14] MEDS ORDERED: LIDOCAINE 1% 2 ML VIAL MC ONE (11:40)
[2020-03-14] MEDS ORDERED: cefTRIAXone 1 GM VIAL IM STA (11:40)
[2020-03-14 12:30] VITALS: BP 158/84
== END 2020-03-14 12:41 | disposition home or self-care (01) ==
LOC: EDUNIT# → ED 10:17
DX: N30.00 Acute cystitis without hematuria (principal); F17.200 Nicotine dependence, unspecified, uncomplicated
CPT/HCPCS: 81001; 81003; 87086; 96372; 99283; 99284

== ENCOUNTER 2020-06-30 08:30 | Outpatient (CLI) | payer MEDICARE, MEDICAID | END 2020-06-30 08:31 | disposition critical access hospital (66) | LOC: EMS 08:30 | PROVIDERS: ATTEND Emergency Medicine | DX: R30.0 Dysuria (principal); R53.1 Weakness | CPT/HCPCS: A0425; A0429 ==

== ENCOUNTER 2020-06-30 09:01 | Emergency (ER) | payer MEDICARE, MEDICAID ==
--- NOTE | 2020-06-30 09:24 | ED Physician Documentation ---
History of Present Illness - Stated complaint Stated Complaint: MALE - Chief complaint Chief Complaint: UTI - History obtained from History obtained from: Patient - History of Present Illness Pain level max: 3 Pain level now: 0 - Additonal information Additional information: 75-year-old male presents to the emergency department with dysuria for the past several days. He states this is been ongoing for about the past year, been treated for several UTIs in the past. Worse with urination, nothing makes it better. No fevers. No chills. History of a traumatic brain injury about 50 years ago. No abdominal pain, back pain. Review of Systems Constitutional: denies: Fever, Chills Respiratory: denies: Cough GI: denies: Vomiting, Diarrhea : reports: Dysuria, Frequency, Hesitancy. denies: Hematuria Skin: denies: Rash Musculoskeletal: denies: Neck pain, Back pain Neurologic: denies: Headache PD PAST MEDICAL HISTORY - Past Medical History Cardiovascular: None Respiratory: None Neuro: CVA, Other Endocrine/Autoimmune: None GI: None : Retention HEENT: None Psych: None Musculoskeletal: None Derm: Eczema Other Past Medical History: TBI - Past Surgical History Past Surgical History: Yes General: Cholecystectomy Ortho: Spine surgery - Present Medications Home Medications: Ambulatory Orders Medication Instructions Recorded Confirmed cephALEXin [Keflex] 500 mg PO Q6H #28 capsule 03/14/20 cephALEXin [Keflex] 500 mg PO Q6H #28 cap 06/30/20 - Allergies Allergies/Adverse Reactions: Allergies Allergy/AdvReac Type Severity Reaction Status Date / Time oxycodone HCl * AdvReac Emesis Verified 03/14/20 10:23 [From Percocet] - Social History Does the pt smoke?: Yes Smoking Status: Current every day smoker Does the pt drink ETOH?: No Does the pt have substance abuse?: No - Immunizations Immunizations are current?: No - POLST Patient has POLST: No PD ED PE NORMAL - Vitals Vital signs reviewed: Yes - General General: Alert and oriented X 3, No acute distress - HEENT HEENT: Moist mucous membranes - Neck Neck: Supple, no meningeal sign - Cardiac Cardiac: RRR - Respiratory Respiratory: No respiratory distress, Clear bilaterally - Abdomen Abdomen: Soft, Non tender, Non distended - Back Back: No CVA TTP, No spinal TTP - Derm Derm: Warm and dry - Extremities Extremities: No edema, No calf tenderness / cord - Neuro Neuro: Alert and oriented X 3 - Psych Psych: Normal mood, Normal affect Results - Vitals Vitals: Vital Signs - 24 hr 06/30/20 09:08 Temperature 36.9 C Heart Rate 60 Respiratory 20 Rate Blood Pressure 160/90 H O2 Saturation 98 Oxygen O2 Source Room air - Labs Labs: Laboratory Tests 06/30/20 09:25 Urine Color YELLOW Urine Clarity CLOUDY Urine pH 6.0 Ur Specific [place] 1.020 Urine Protein 100 H Urine Glucose (UA) NEGATIVE Urine Ketones NEGATIVE Urine Occult Blood LARGE H Urine Nitrite POSITIVE H Urine Bilirubin NEGATIVE Urine Urobilinogen 0.2 (NORMAL) Ur Leukocyte Esterase LARGE H Urine RBC TNTC H Urine WBC >25 H Urine WBC Clumps PRESENT Ur Epithelial Cells FEW Transitional Ur Squamous Epith Cells FEW Squamous Urine Bacteria Many H Ur Microscopic Review INDICATED Urine Culture Comments INDICATED PD MEDICAL DECISION MAKING - ED course Complexity details: reviewed old records, reviewed results, considered differential, d/w patient ED course: 75-year-old male presents to the emergency department with concern for UTI. Urinalysis is consistent with this. Will place on antibiotics and have him follow-up with his doctor for further care. Patient is well-appearing, nontoxic. Afebrile. Patient counseled regarding signs and symptoms for which I believe and urgent re-evaluation would be necessary. Patient with good understanding of and agreement to plan and is comfortable going home at this time This document was made in part using voice recognition software. While efforts are made to proofread this document, sound alike and grammatical errors may occur. Departure - Departure Disposition: 01 Home, Self Care Clinical Impression: UTI (urinary tract infection) Qualifiers: Urinary tract infection type: acute cystitis Hematuria presence: without hematuria Qualified Code(s): N30.00 - Acute cystitis without hematuria Condition: Good Instructions: ED UTI Cystitis Male Follow-Up: your,doctor in 1 week [Other] Prescriptions: cephALEXin [Keflex] 500 mg PO Q6H #28 cap Comments: Take all antibiotics until gone. Return if you worsen. Follow-up with your doctor for further care.
[2020-06-30 09:41] LABS: BILIRUBIN,URINE NEGATIVE (NEGATIVE); GLUCOSE, URINE (UA) NEGATIVE (NEGATIVE); KETONES,URINE (UA) NEGATIVE (NEGATIVE); LEUKOCYTE ESTERASE, URINE LARGE (NEGATIVE); NITRITE,URINE POSITIVE (NEGATIVE); OCCULT BLOOD,URINE LARGE (NEGATIVE); PROTEIN,URINE 100 mg/dL (NEGATIVE); UROBILINOGEN,URINE 0.2 (NORMAL) E.U./dL (NORMAL)
[2020-06-30 09:47] LABS: CLARITY,URINE CLOUDY (CLEAR)
[2020-06-30 09:56] LABS: BACTERIA,URINE Many /HPF (None Seen); RBC,URINE TNTC /HPF (0-5); SQUAMOUS EPITHELIAL CELL,UR FEW Squamous (<= Few); WBC CLUMPS,URINE PRESENT; WBC,URINE >25 /HPF (0-3)
[2020-06-30] MEDS ORDERED: cephALEXin 250 MG CAPSULE PO STA (10:00)
[2020-06-30 10:14] VITALS: BP 140/81
== END 2020-06-30 10:27 | disposition home or self-care (01) ==
LOC: EDBD → EDUNIT# → ED 09:01
DX: N30.00 Acute cystitis without hematuria (principal); Z87.820 Personal history of traumatic brain injury; F17.200 Nicotine dependence, unspecified, uncomplicated
CPT/HCPCS: 51798; 81001; 87086; 99283; 99284; A9270; 81003

== ENCOUNTER 2020-10-06 09:37 | Outpatient (CLI) | payer MEDICARE, MEDICAID | END 2020-10-06 09:38 | disposition critical access hospital (66) | LOC: EMS 09:37 | DX: R39.198 Other difficulties with micturition (principal) | CPT/HCPCS: A0425; A0429 ==

== ENCOUNTER 2020-10-06 10:09 | Emergency (ER) | payer MEDICARE, MEDICAID ==
--- NOTE | 2020-10-06 10:18 | ED Physician Documentation ---
PD HPI MALE - Stated complaint Stated Complaint: - History obtained from History obtained from: Patient - History of Present Illness Timing - onset: How many days ago (5) Timing - duration: Days (5) Timing - details: Gradual onset, Still present Associated symptoms: Dysuria, Urinary frequency PD HPI MALE CONTRIB FACTORS: Not sexually active Similar symptoms before: Diagnosis (uti) Recently seen: Not recently seen - Additional information Additional information: 75-year-old male with a prior history TBI and urinary tract infection has developed symptoms again of urinary tract infection he is having urinary urgency frequency and dysuria and he is urinating only small amounts having to be awake most of the night to go back and forth into the bathroom.He denies any pain or swelling of his lower abdomen. Review of Systems Constitutional: denies: Fever Eyes: denies: Decreased vision Ears: denies: Ear pain Nose: denies: Congestion Respiratory: denies: Cough GI: reports: Constipation. denies: Abdominal Pain, Nausea, Vomiting, Diarrhea : reports: Dysuria, Frequency Skin: denies: Rash Musculoskeletal: denies: Neck pain, Back pain, Extremity pain Neurologic: denies: Generalized weakness, Focal weakness, Numbness PD PAST MEDICAL HISTORY - Past Medical History Cardiovascular: None Respiratory: None Neuro: CVA, Other Endocrine/Autoimmune: None GI: None : Retention HEENT: None Psych: None Musculoskeletal: None Derm: Eczema - Past Surgical History Past Surgical History: Yes General: Cholecystectomy Ortho: Spine surgery - Present Medications Home Medications: Ambulatory Orders Medication Instructions Recorded Confirmed Phenazopyridine HCl [Pyridium] 200 mg PO TID PRN #6 tablet 10/06/20 Sulfamethoxazole/Trimethoprim 1 each PO BID #14 tablet 10/06/20 [Bactrim 400-80 mg Tablet] - Allergies Allergies/Adverse Reactions: Allergies Allergy/AdvReac Type Severity Reaction Status Date / Time oxycodone HCl * AdvReac Emesis Verified 10/06/20 10:27 [From Percocet] - Social History Does the pt smoke?: Yes Smoking Status: Current every day smoker Does the pt drink ETOH?: No Does the pt have substance abuse?: No - Immunizations Immunizations are current?: No - POLST Patient has POLST: No PD ED PE NORMAL - Vitals Vital signs reviewed: Yes (Hypertensive) - General General: Alert and oriented X 3, No acute distress - HEENT HEENT: Atraumatic, PERRL, EOMI - Neck Neck: Supple, no meningeal sign - Cardiac Cardiac: RRR, No murmur - Respiratory Respiratory: No respiratory distress, Clear bilaterally - Abdomen Abdomen: Soft, Non tender - Back Back: No CVA TTP, No spinal TTP - Derm Derm: Normal color, Warm and dry, No rash - Extremities Extremities: No deformity, No edema - Neuro Neuro: 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 CLOUDY Urine pH 6.0 Ur Specific [place] >=1.030 H Urine Protein 100 H Urine Glucose (UA) NEGATIVE Urine Ketones TRACE Urine Occult Blood MODERATE H Urine Nitrite POSITIVE H Urine Bilirubin NEGATIVE Urine Urobilinogen 1 (NORMAL) Ur Leukocyte Esterase MODERATE H Urine RBC 6-10 H Urine WBC >25 H Urine WBC Clumps PRESENT Ur Squamous Epith Cells RARE Squamous Urine Bacteria Few Ur Microscopic Review INDICATED Urine Culture Comments INDICATED Procedures - Bedside sono Bedside sono by EMP: With use of bedside ultrasound the bladder is imaged and there is no significant contents to the bladder. - IVC sono (time) 1014 Bedside IVC sono: IVC measures (cm) (1.38), Euvolemia (close) PD MEDICAL DECISION MAKING - ED course Complexity details: reviewed results, re-evaluated patient, considered differential, d/w patient ED course: 75-year-old male with prior history of urinary tract infection has urinary tract infection again. He is administered a injection of Rocephin we will place him onto some Septra and provided some Pyridium for the patient has the most significant symptom he is having is the frequency urgency and dysuria. Departure - Departure Disposition: 01 Home, Self Care Clinical Impression: UTI (urinary tract infection) Qualifiers: Urinary tract infection type: acute cystitis Hematuria presence: with hematuria Qualified Code(s): N30.01 - Acute cystitis with hematuria Condition: Stable Instructions: ED UTI Cystitis Male Follow-Up: Kaylee Leger ARNP [Credentialed Staff Provider] - Prescriptions: Sulfamethoxazole/Trimethoprim [Bactrim 400-80 mg Tablet] 1 each PO BID #14 tablet Phenazopyridine HCl [Pyridium] 200 mg PO TID PRN #6 tablet PRN Reason: dysuria
[2020-10-06 10:30] LABS: GLUCOSE, URINE (UA) NEGATIVE (NEGATIVE); KETONES,URINE (UA) TRACE mg/dL (NEGATIVE); LEUKOCYTE ESTERASE, URINE MODERATE (NEGATIVE); NITRITE,URINE POSITIVE (NEGATIVE); OCCULT BLOOD,URINE MODERATE (NEGATIVE); PROTEIN,URINE 100 mg/dL (NEGATIVE); UROBILINOGEN,URINE 1 (NORMAL) E.U./dL (NORMAL)
[2020-10-06 10:32] LABS: CLARITY,URINE SL. CLOUDY (CLEAR)
[2020-10-06 10:35] LABS: BILIRUBIN,URINE NEGATIVE (NEGATIVE); ICTOTEST,URINE NEGATIVE
[2020-10-06 10:58] LABS: SQUAMOUS EPITHELIAL CELL,UR RARE Squamous (<= Few); WBC CLUMPS,URINE PRESENT; WBC,URINE >25 /HPF (0-3)
[2020-10-06 10:59] LABS: BACTERIA,URINE Few /HPF (None Seen)
[2020-10-06] MEDS ORDERED: cefTRIAXone 1 GM VIAL IM STA (11:21)
[2020-10-06] MEDS ORDERED: LIDOCAINE 1% 2 ML VIAL MC ONE (11:21)
[2020-10-06] MEDS ORDERED: PHENAZOPYRIDINE 100 MG TABLET PO STA (11:21)
[2020-10-06 11:52] VITALS: BP 143/89
== END 2020-10-06 11:52 | disposition home or self-care (01) ==
LOC: EDUNIT# → ED 10:09
DX: N30.01 Acute cystitis with hematuria (principal); F17.200 Nicotine dependence, unspecified, uncomplicated
CPT/HCPCS: 81001; 87086; 96372; 99283; 99284; A9270; 81003

== ENCOUNTER 2021-05-23 08:43 | Outpatient (CLI) | payer MEDICARE, MEDICAID | END 2021-05-23 08:44 | disposition short-term general hospital (02) | LOC: EMS 08:43 | DX: M25.551 Pain in right hip (principal); W18.39XA Other fall on same level, initial encounter; Y93.01 Activity, walking, marching and hiking; Y92.008 Other place in unspecified non-institutional (private) residence as the place of occurrence of the external cause; I69.393 Ataxia following cerebral infarction | CPT/HCPCS: A0425; A0429 ==

== ENCOUNTER 2021-06-15 01:10 | Outpatient (CLI) | payer MEDICARE, MEDICAID ==
[2021-06-15 06:35] LABS: BILIRUBIN,URINE NEGATIVE (NEGATIVE); GLUCOSE, URINE (UA) NEGATIVE (NEGATIVE); KETONES,URINE (UA) NEGATIVE (NEGATIVE); LEUKOCYTE ESTERASE, URINE LARGE (NEGATIVE); NITRITE,URINE NEGATIVE (NEGATIVE); OCCULT BLOOD,URINE MODERATE (NEGATIVE); PROTEIN,URINE NEGATIVE (NEGATIVE); UROBILINOGEN,URINE 0.2 (NORMAL) E.U./dL (NORMAL)
[2021-06-15 06:44] LABS: CLARITY,URINE SL. CLOUDY (CLEAR); WBC,URINE >25 /HPF (0-3)
[2021-06-15 06:45] LABS: BACTERIA,URINE Few /HPF (None Seen); SQUAMOUS EPITHELIAL CELL,UR RARE Squamous (<= Few)
== END 2021-06-15 23:59 | disposition home or self-care (01) ==
LOC: LAB.R 01:10
PROVIDERS: ATTEND Hospitalist
DX: N39.0 Urinary tract infection, site not specified (principal)
CPT/HCPCS: 81001; 87077; 87086; 87181

== ENCOUNTER 2021-10-02 08:00 | Outpatient (CLI) | payer MEDICARE, MEDICAID ==
[2021-10-02 16:54] LABS: BASOPHILS % (AUTO) 0.5 %; EOSINOPHILS # (AUTO) 0.2 10^3/uL (0.0-0.7); EOSINOPHILS % (AUTO) 2.7 %; HCT - HEMATOCRIT 32.1 % (42.0-52.0); HGB - HEMOGLOBIN 11.1 g/dL (14.0-18.0); LYMPHOCYTES # (AUTO) 0.8 10^3/uL (1.5-3.5); LYMPHOCYTES % (AUTO) 11.3 %; MEAN CORPUSCULAR HEMOGLOBIN 30.7 pg (27.0-31.0); MEAN CORPUSCULAR HGB CONC 34.6 g/dL (32.0-36.0); MEAN CORPUSCULAR VOLUME 88.9 fL (80.0-94.0); MEAN PLATELET VOLUME 8.4 fL (7.4-11.4); MONOCYTES # (AUTO) 0.8 10^3/uL (0.0-1.0); MONOCYTES % (AUTO) 11.4 %; NEUTROPHILS # (AUTO) 5.4 10^3/uL (1.5-6.6); NEUTROPHILS % (AUTO) 73.6 %; PLT - PLATELET COUNT 279 10^3/uL (130-450); RED BLOOD COUNT 3.61 10^6/uL (4.70-6.10); RED CELL DISTRIBUTION WIDTH 12.7 % (12.0-15.0); WHITE BLOOD COUNT 7.4 x10^3/uL (4.8-10.8)
[2021-10-02 17:01] LABS: BILIRUBIN,URINE NEGATIVE (NEGATIVE); CLARITY,URINE HAZY (CLEAR); GLUCOSE, URINE (UA) NEGATIVE (NEGATIVE); KETONES,URINE (UA) NEGATIVE (NEGATIVE); LEUKOCYTE ESTERASE, URINE LARGE (NEGATIVE); NITRITE,URINE NEGATIVE (NEGATIVE); OCCULT BLOOD,URINE SMALL (NEGATIVE); PH,URINE 6.5 PH (5.0-7.5); PROTEIN,URINE 100 mg/dL (NEGATIVE); UROBILINOGEN,URINE 0.2 (NORMAL) E.U./dL (NORMAL)
[2021-10-02 17:03] LABS: CALCIUM 9.2 mg/dL (8.5-10.3); POTASSIUM 4.2 mmol/L (3.5-5.0)
[2021-10-02 17:07] LABS: BACTERIA,URINE Few /HPF (None Seen); SQUAMOUS EPITHELIAL CELL,UR FEW Squamous (<= Few); WBC,URINE >25 /HPF (0-3)
== END 2021-10-02 23:59 | disposition home or self-care (01) ==
LOC: LAB.R 08:00
PROVIDERS: ATTEND Hospitalist
DX: N39.0 Urinary tract infection, site not specified (principal); I10 Essential (primary) hypertension; E46 Unspecified protein-calorie malnutrition
CPT/HCPCS: 80048; 81001; 81003; 85025; 87086

== ENCOUNTER 2021-10-28 08:00 | Outpatient (CLI) | payer MEDICARE, MEDICAID ==
[2021-10-28 10:31] LABS: BILIRUBIN,URINE NEGATIVE (NEGATIVE); GLUCOSE, URINE (UA) NEGATIVE (NEGATIVE); KETONES,URINE (UA) NEGATIVE (NEGATIVE); LEUKOCYTE ESTERASE, URINE MODERATE (NEGATIVE); NITRITE,URINE POSITIVE (NEGATIVE); OCCULT BLOOD,URINE LARGE (NEGATIVE); PH,URINE 8.5 PH (5.0-7.5); PROTEIN,URINE 30 mg/dL (NEGATIVE); UROBILINOGEN,URINE 0.2 (NORMAL) E.U./dL (NORMAL)
[2021-10-28 10:41] LABS: BACTERIA,URINE Moderate /HPF (None Seen); CLARITY,URINE SL. CLOUDY (CLEAR); CRYSTALS,URINE 6-10 Triple Phos /LPF; RBC,URINE TNTC /HPF (0-5); SQUAMOUS EPITHELIAL CELL,UR RARE Squamous (<= Few)
== END 2021-10-28 23:59 | disposition home or self-care (01) ==
LOC: LAB.R 08:00
PROVIDERS: ATTEND Hospitalist
DX: R31.9 Hematuria, unspecified (principal)
CPT/HCPCS: 81001; 87086; 87181

== ENCOUNTER 2021-11-06 08:00 | Outpatient (CLI) | payer MEDICARE, MEDICAID ==
[2021-11-06 17:01] LABS: BILIRUBIN,URINE NEGATIVE (NEGATIVE); GLUCOSE, URINE (UA) NEGATIVE (NEGATIVE); KETONES,URINE (UA) TRACE mg/dL (NEGATIVE); LEUKOCYTE ESTERASE, URINE MODERATE (NEGATIVE); NITRITE,URINE NEGATIVE (NEGATIVE); OCCULT BLOOD,URINE LARGE (NEGATIVE); PROTEIN,URINE 100 mg/dL (NEGATIVE); UROBILINOGEN,URINE 0.2 (NORMAL) E.U./dL (NORMAL)
[2021-11-06 17:02] LABS: CLARITY,URINE HAZY (CLEAR)
[2021-11-06 17:23] LABS: RBC,URINE TNTC /HPF (0-5); WBC,URINE >25 /HPF (0-3)
[2021-11-06 17:24] LABS: BACTERIA,URINE Few /HPF (None Seen); SQUAMOUS EPITHELIAL CELL,UR FEW Squamous (<= Few)
== END 2021-11-06 23:59 | disposition home or self-care (01) ==
LOC: LAB 08:00
PROVIDERS: ATTEND Hospitalist
DX: N39.0 Urinary tract infection, site not specified (principal)
CPT/HCPCS: 81001; 81003; 87086

== ENCOUNTER 2021-12-03 16:31 | Outpatient (CLI) | payer MEDICARE, MEDICAID | END 2021-12-03 16:32 | disposition short-term general hospital (02) | LOC: EMS 16:31 | DX: M25.552 Pain in left hip (principal); W18.39XA Other fall on same level, initial encounter; Y92.098 Other place in other non-institutional residence as the place of occurrence of the external cause | CPT/HCPCS: A0425; A0427 ==

== ENCOUNTER 2022-02-12 08:00 | Outpatient (CLI) | payer MEDICARE, MEDICAID ==
[2022-02-12 17:45] LABS: CREATININE 0.9 mg/dL (0.6-1.2)
== END 2022-02-12 23:59 | disposition home or self-care (01) ==
LOC: LAB 08:00
PROVIDERS: ATTEND Urology
DX: N41.1 Chronic prostatitis (principal); R31.29 Other microscopic hematuria
CPT/HCPCS: 36415; 82565; 84520

== ENCOUNTER 2022-02-22 14:15 | Outpatient (CLI) | payer MEDICARE, MEDICAID ==
[2022-02-22] MEDS ORDERED: iohexoL-300 100 ML VIAL ONE (14:30)
[2022-02-22 14:37] LABS: CREATININE 0.9 mg/dL (0.6-1.2)
[2022-02-22] MEDS ORDERED: iohexoL-300 100 ML VIAL IVP ONE (15:40)
--- NOTE | 2022-02-22 17:23 | CT Report ---
PROCEDURE: IVP INDICATIONS: MICROSCOPIC HEMATURIA CONTRAST: 140ml omni 300 TECHNIQUE: After the administration of intravenous contrast, 5 mm thick sections acquired from the diaphragms to the symphysis. 5 mm thick coronal and sagittal reformats were acquired. For radiation dose reducti on, the following was used: automated exposure control, adjustment of mA and/or kV according to phil ent size. COMPARISON: None. FINDINGS: Image quality: Excellent. Lung bases: Lung bases are clear. Heart size is normal. Urinary system: Both kidneys are normal in size. No nephrolithiasis. No hydronephrosis. No suspicious renal enhancement. Renal collecting systems demonstrate normal course and caliber where visualized. There is a 3.9 x 3.0 cm calculus within the bladder which measures approximately 4-500 [place] uni ts in density. No discrete bladder mass lesions or bladder wall thickening. The prostate has a hetero geneous appearance and 6.0 cm in diameter. Solid organs: Liver and spleen are normal in size and enhancement. Gallbladder is surgically absent . Biliary system is non dilated. Pancreas enhances normally. No adrenal nodules. Peritoneum and bowel: Bowel loops demonstrate normal wall thickness and caliber. No free fluid or a ir. Nodes and vessels: No retroperitoneal or mesenteric adenopathy by size criteria. There is a 8.7 x 6. 6 cm abdominal aortic aneurysm. There is a large amount of mural thrombus within this aneurysm and so me calcification along the wall. This aneurysm measured 6.3 x 5.9 cm in the [facility]. Abdominal wall: No ventral hernias. Pelvis: No pathologic free pelvic fluid. No inguinal hernias or adenopathy. Bones: No suspicious bony lesions. No vertebral body compression fractures. IMPRESSION: 1. No hydronephrosis, nephrolithiasis, hydroureter, or ureterolithiasis. 2. Large bladder calculus as above. This may be the etiology of the patient's hematuria. 3. Very large abdominal aortic aneurysm which is markedly increased in size when compared with the CT from 01/01/2019. Considering the size and growth over time, urgent vascular surgery consultation is r ecommended. Reviewed by: Karen Schmitt MD on 02/22/2022 5:22 PM PST Approved by: Karen Schmitt MD on 02/22/2022 5:22 PM PST Station ID: [id number]
== END 2022-02-22 14:16 | disposition home or self-care (01) ==
LOC: LAB 14:15
PROVIDERS: ATTEND Urology
DX: R31.29 Other microscopic hematuria (principal); N21.0 Calculus in bladder; I71.40 Abdominal aortic aneurysm, without rupture, unspecified
CPT/HCPCS: 36415; 74178; 82565; 84520; Q9967

== ENCOUNTER 2022-03-05 15:07 | Outpatient (CLI) | payer MEDICARE, MEDICAID ==
[2022-03-05 15:17] LABS: BILIRUBIN,URINE NEGATIVE (NEGATIVE); GLUCOSE, URINE (UA) NEGATIVE (NEGATIVE); KETONES,URINE (UA) NEGATIVE (NEGATIVE); LEUKOCYTE ESTERASE, URINE LARGE (NEGATIVE); NITRITE,URINE NEGATIVE (NEGATIVE); OCCULT BLOOD,URINE LARGE (NEGATIVE); PROTEIN,URINE 100 mg/dL (NEGATIVE); UROBILINOGEN,URINE 0.2 (NORMAL) E.U./dL (NORMAL)
[2022-03-05 15:18] LABS: CLARITY,URINE CLOUDY (CLEAR)
[2022-03-05 15:26] LABS: BACTERIA,URINE Many /HPF (None Seen); SQUAMOUS EPITHELIAL CELL,UR RARE Squamous (<= Few); WBC,URINE >25 /HPF (0-3)
== END 2022-03-05 15:08 | disposition home or self-care (01) ==
LOC: LAB 15:07
PROVIDERS: ATTEND Internal Medicine
DX: N39.0 Urinary tract infection, site not specified (principal)
CPT/HCPCS: 81001; 87086; 87181

== ENCOUNTER 2022-03-12 06:52 | Outpatient (CLI) | payer MEDICARE, MEDICAID | END 2022-03-12 23:59 | disposition critical access hospital (66) | LOC: EMS 06:52 | DX: T83.9XXA Unspecified complication of genitourinary prosthetic device, implant and graft, initial encounter (principal); R33.9 Retention of urine, unspecified | CPT/HCPCS: A0425; A0429 ==

== ENCOUNTER 2022-03-12 07:02 | Emergency (ER) | payer MEDICARE, MEDICAID ==
--- NOTE | 2022-03-12 07:14 | ED Physician Documentation ---
PD HPI MALE - Stated complaint Stated Complaint: CATH ISSUE - History obtained from History obtained from: Patient, EMS (Medics report the patient has having discomfort in the lower abdomen this morning and the urine was not draining. general weakness.), Caregiver - History of Present Illness Timing - onset: Today Timing - details: Gradual onset (has had chronic pratt with recent UTI from culture 03/05/22 showing e.coli. Supposedly on abx. MAR not showing recent meds. Had blood in urine and this AM the pratt was not draining and bladder full. Sent to ER by EMS for clogged pratt.) Associated symptoms: Unable to urinate (unclear how long the urine output has been impeded, but the complete clogged pratt was overnight/this AM. 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 Has seen Shaun in [facility].) Recently seen: Not recently seen Review of Systems Unable to obtain: Confused, Other (info from [facility] caregivers and EMS.) Constitutional: denies: Fever Respiratory: denies: Cough GI: denies: Vomiting, Diarrhea Neurologic: reports: Generalized weakness PD PAST MEDICAL HISTORY - Past Medical History Cardiovascular: None Respiratory: None Neuro: CVA, Other Endocrine/Autoimmune: None GI: None : Retention HEENT: None Psych: None Musculoskeletal: None Derm: Eczema - Past Surgical History Past Surgical History: Yes General: Cholecystectomy Ortho: Spine surgery - Present Medications Home Medications: Ambulatory Orders Medication Instructions Recorded Confirmed Phenazopyridine HCl [Pyridium] 200 mg PO TID PRN #6 tablet 10/06/20 Sulfamethoxazole/Trimethoprim 1 each PO BID #14 tablet 10/06/20 [Bactrim 400-80 mg Tablet] Ferrous Gluconate 324 mg PO DAILY #20 tablet 03/12/22 - Allergies Allergies/Adverse Reactions: Allergies Allergy/AdvReac Type Severity Reaction Status Date / Time oxycodone HCl * AdvReac Emesis Verified 10/06/20 10:27 [From Percocet] - Social History Does the pt smoke?: Yes Smoking Status: Current every day smoker Does the pt drink ETOH?: No Does the pt have substance abuse?: No - Immunizations Immunizations are current?: No - POLST Patient has POLST: No PD ED PE NORMAL - Vitals Vital signs reviewed: Yes - General General: Alert and oriented X 3, Well developed/nourished, Other (appears very uncomfortable lower abd pain.) - Neck Neck: Supple, no meningeal sign, No adenopathy - Cardiac Cardiac: RRR, No murmur - Respiratory Respiratory: Clear bilaterally - Abdomen Abdomen: Normal bowel sounds, Soft, No organomegaly, Other (Distended suprapubic area to above the umbilicus about the size of a large grapefruit or pineapple. 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 No urine coming out from the Pratt.Some blood trickle and clots in the proximal tubing.) - Rectal Rectal: Deferred - Back Back: No CVA TTP - Derm Derm: Normal color, No rash Results - Vitals Vitals: Vital Signs - 24 hr 03/12/22 03/12/22 07:30 10:00 Temperature 37.1 C Heart Rate 84 65 Respiratory 18 18 Rate Blood Pressure 135/74 H 126/80 O2 Saturation 99 100 Oxygen O2 Source Room air - Labs Labs: Laboratory Tests 03/12/22 03/12/22 03/12/22 08:07 08:07 12:07 WBC 8.2 RBC 3.64 L Hgb 9.2 L Hct 29.1 L MCV 79.9 L MCH 25.3 L MCHC 31.6 L RDW 14.7 Plt Count 197 MPV 8.4 Neut # (Auto) 6.6 Lymph # (Auto) 0.6 L [place] # (Auto) 0.8 Eos # (Auto) 0.1 Baso # (Auto) 0.0 Absolute Nucleated RBC 0.00 Nucleated RBC % 0.0 Sodium 120 L* 123 L Potassium 4.5 4.8 Chloride 84 L 90 L Carbon Dioxide 22 19 L Anion Gap 14.0 H 14.0 H BUN 57 H 53 H Creatinine 3.1 H 2.6 H Estimated GFR (MDRD) 20 L 24 L Glucose 101 H 87 Calcium 8.5 8.2 L Magnesium 2.6 Total Bilirubin 0.6 AST 16 ALT < 10 L Alkaline Phosphatase 90 Total Protein 6.4 L Albumin 3.0 L Globulin 3.4 Albumin/Globulin Ratio 0.9 L Lipase 33 PD MEDICAL DECISION MAKING - ED course Complexity details: reviewed results (He typically has chronic hyponatremia but is lower than typical now at 120 with last being 125. Acute elevated creatinine of 3.1 compared to normal most recent. Presume obstructive uropathy from the Pratt clogged. We will recheck electrolytes and creatinine in 4 to 5 hours. IV fluids too. ), re-evaluated patient (the patient is comfortable here and has pratt still draining well with mild red tint to the output. repeat labs showing improvement already down to 2.6 creatinine and sodium up from 120 to 123 (with prior being 124/125) He can return to [facility]. Suggest should get repeat labs in 1-2 days. ), considered differential (very full bladder and pratt in place not draining. Will replace the pratt and then irrigate clots out. ), d/w patient Departure - Departure Disposition: 01 Home, Self Care Clinical Impression: LOU (acute kidney injury), Lower obstructive uropathy, Hyponatremia, Anemia Pratt catheter problem Qualifiers: Encounter type: initial encounter Qualified Code(s): T83.9XXA - Unspecified c omplication of genitourinary prosthetic device, implant and graft, initial encounter Condition: Stable Record reviewed to determine appropriate education?: Yes Prescriptions: Ferrous Gluconate 324 mg PO DAILY #20 tablet Comments: Your Pratt catheter was clogged with blood clots. We have a new Pratt catheter in seems to be draining well. We have not gotten any further blood clots out with bladder irrigation so they seem to be cleared. You having a little bit of blood in the urine still but only a small amount. Blood tests show some slightly worsened anemia but not low enough to need transfusions etc. Consideration would be an iron supplement if you are not already on one. I sent script to [facility]. Your sodium level was lower than usual as well (was 120 and is improved to 123; recent prior ones were 124/125). We you were given some saline IV fluids and it is improved on repeat testing close to your baseline sodium level now. Your kidney function was affected by the blocked outflow of urine from your bladder (obstructive uropathy). This seems to be improving now that the flow is restored out of the Pratt and with IV hydration. You should get a repeat blood test to assess your kidney function electrolytes and 1 or 2 days. This can be done through your primary care at [facility]. Discharge Date/Time: 03/12/22 13:54
[2022-03-12 08:11] LABS: BASOPHILS % (AUTO) 0.2 %; EOSINOPHILS # (AUTO) 0.1 10^3/uL (0.0-0.7); EOSINOPHILS % (AUTO) 0.7 %; HCT - HEMATOCRIT 29.1 % (42.0-52.0); HGB - HEMOGLOBIN 9.2 g/dL (14.0-18.0); LYMPHOCYTES # (AUTO) 0.6 10^3/uL (1.5-3.5); LYMPHOCYTES % (AUTO) 7.1 %; MEAN CORPUSCULAR HEMOGLOBIN 25.3 pg (27.0-31.0); MEAN CORPUSCULAR HGB CONC 31.6 g/dL (32.0-36.0); MEAN CORPUSCULAR VOLUME 79.9 fL (80.0-94.0); MEAN PLATELET VOLUME 8.4 fL (7.4-11.4); MONOCYTES # (AUTO) 0.8 10^3/uL (0.0-1.0); MONOCYTES % (AUTO) 9.8 %; NEUTROPHILS # (AUTO) 6.6 10^3/uL (1.5-6.6); NEUTROPHILS % (AUTO) 80.1 %; PLT - PLATELET COUNT 197 10^3/uL (130-450); RED BLOOD COUNT 3.64 10^6/uL (4.70-6.10); RED CELL DISTRIBUTION WIDTH 14.7 % (12.0-15.0); WHITE BLOOD COUNT 8.2 x10^3/uL (4.8-10.8)
[2022-03-12 08:25] LABS: ALBUMIN/GLOBULIN RATIO 0.9 (1.0-2.2); ALKALINE PHOSPHATASE 90 IU/L (42-121); ALT ALANINE AMINOTRANSFERASE < 10 IU/L (10-60); AST ASPARTATE AMINOTRANSFERASE 16 IU/L (10-42); BILIRUBIN,TOTAL 0.6 mg/dL (0.2-1.0); BUN - BLOOD UREA NITROGEN 57 mg/dL (6-20); CALCIUM 8.5 mg/dL (8.5-10.3); CARBON DIOXIDE - CO2 22 mmol/L (21-32); CHLORIDE 84 mmol/L (101-111); CREATININE 3.1 mg/dL (0.6-1.2); GFR - MDRD 20 (>89); GLUCOSE 101 mg/dL (70-100); LIPASE 33 U/L (22-51); POTASSIUM 4.5 mmol/L (3.5-5.0); TOTAL PROTEIN 6.4 g/dL (6.7-8.2)
[2022-03-12 08:28] LABS: SODIUM 120 mmol/L (135-145)
[2022-03-12] MEDS ORDERED: SODIUM CHLORIDE 0.9% 1,000 ML IV STA ×2 (08:49→09:32)
[2022-03-12 10:02] VITALS: BP 126/80
[2022-03-12 12:47] LABS: CALCIUM 8.2 mg/dL (8.5-10.3); CREATININE 2.6 mg/dL (0.6-1.2); MAGNESIUM 2.6 mg/dL (1.7-2.8); POTASSIUM 4.8 mmol/L (3.5-5.0)
== END 2022-03-12 13:54 | disposition home or self-care (01) ==
LOC: EDUNIT# → ED 07:02
DX: T83.091A Other mechanical complication of indwelling urethral catheter, initial encounter (principal); F17.200 Nicotine dependence, unspecified, uncomplicated; N17.9 Acute kidney failure, unspecified; N13.9 Obstructive and reflux uropathy, unspecified; E87.1 Hypo-osmolality and hyponatremia; D64.9 Anemia, unspecified
CPT/HCPCS: 36415; 51700; 80048; 80053; 83690; 83735; 85025; 99283

== ENCOUNTER 2022-03-12 13:29 | Outpatient (CLI) | payer MEDICARE, MEDICAID | END 2022-03-12 23:59 | disposition home or self-care (01) | LOC: EMS 13:29 | PROVIDERS: ATTEND Emergency Medicine | DX: R41.0 Disorientation, unspecified (principal); Z74.01 Bed confinement status | CPT/HCPCS: A0425; A0428 ==

== ENCOUNTER 2022-03-13 08:00 | Outpatient (CLI) | payer MEDICARE, MEDICAID | END 2022-03-13 23:59 | disposition home or self-care (01) | LOC: LAB.R 08:00 | DX: E87.1 Hypo-osmolality and hyponatremia (principal) | CPT/HCPCS: 83935 ==

== ENCOUNTER 2022-03-14 15:15 | Outpatient (CLI) | payer MEDICARE, MEDICAID ==
[2022-03-14 15:36] LABS: ABSOLUTE RETICS # AUTO 0.014 10^6/uL (0.020-0.110); RED BLOOD COUNT 3.31 10^6/uL (4.70-6.10); RETICULOCYTE COUNT % (AUTO) 0.42 % (0.5-2.3)
[2022-03-14 15:46] LABS: CALCIUM 8.2 mg/dL (8.5-10.3); CREATININE 1.2 mg/dL (0.6-1.2); POTASSIUM 3.9 mmol/L (3.5-5.0)
== END 2022-03-14 15:16 | disposition home or self-care (01) ==
LOC: LAB 15:15
PROVIDERS: ATTEND Internal Medicine
DX: E87.1 Hypo-osmolality and hyponatremia (principal); D64.9 Anemia, unspecified
CPT/HCPCS: 36415; 80048; 83930; 85045

== ENCOUNTER 2022-04-09 13:44 | Outpatient (CLI) | payer MEDICARE, MEDICAID | END 2022-04-09 13:45 | disposition home or self-care (01) | LOC: LAB.R 13:44 | PROVIDERS: ATTEND Internal Medicine | DX: E46 Unspecified protein-calorie malnutrition (principal) | CPT/HCPCS: 84134 ==

== ENCOUNTER 2022-09-19 08:00 | Outpatient (CLI) | payer MEDICARE, MEDICAID ==
[2022-09-19 07:25] LABS: BILIRUBIN,URINE NEGATIVE (NEGATIVE); GLUCOSE, URINE (UA) NEGATIVE (NEGATIVE); KETONES,URINE (UA) NEGATIVE (NEGATIVE); LEUKOCYTE ESTERASE, URINE MODERATE (NEGATIVE); NITRITE,URINE POSITIVE (NEGATIVE); OCCULT BLOOD,URINE LARGE (NEGATIVE); PROTEIN,URINE >=300 mg/dL (NEGATIVE); UROBILINOGEN,URINE 0.2 (NORMAL) E.U./dL (NORMAL)
[2022-09-19 07:30] LABS: BACTERIA,URINE Moderate /HPF (None Seen); CLARITY,URINE CLOUDY (CLEAR); RBC,URINE TNTC /HPF (0-5); SQUAMOUS EPITHELIAL CELL,UR NONE SEEN (<= Few)
[2022-09-19 07:31] LABS: CASTS, URINE 3-5 Course Granular /LPF
== END 2022-09-19 23:59 | disposition home or self-care (01) ==
LOC: LAB.R 08:00
PROVIDERS: ATTEND Registered Nurse
DX: N39.0 Urinary tract infection, site not specified (principal)
CPT/HCPCS: 81001; 87077; 87086; 87181

== ENCOUNTER 2022-09-22 17:29 | Outpatient (CLI) | payer MEDICARE, MEDICAID | END 2022-09-22 17:30 | disposition critical access hospital (66) | LOC: EMS 17:29 | DX: N39.0 Urinary tract infection, site not specified (principal) | CPT/HCPCS: A0425; A0429 ==

== ENCOUNTER 2022-09-22 17:35 | Emergency (ER) | payer MEDICARE, MEDICAID ==
[2022-09-22] MEDS ORDERED: MEROPENEM 1 GM in SODIUM CHLORIDE 0.9% MINIBAG 100 ML IV STA (18:52)
--- NOTE | 2022-09-22 18:52 | ED Physician Documentation ---
History of Present Illness - Stated complaint Stated Complaint: MALE - Chief complaint Chief Complaint: UTI - History obtained from History obtained from: Patient - Additonal information Additional information: Patient is a 77-year-old male who was sent in from his care facility for "PICC line placement and antibiotics." The patient had an outpatient urinalysis that was positive for ESBL Klebsiella and Proteus. This was done on 09/19. The culture was reviewed and Is sensitive to ertapenem. The patient is currently not having any other symptoms, no change in mentation, no fever or chills, no back or flank pain, no nausea or vomiting. The patient states that he "feels fine," and Has no concerns at this time other than wanting to get back to his facility. Review of Systems Constitutional: reports: Reviewed and negative Cardiac: reports: Reviewed and negative Respiratory: reports: Reviewed and negative GI: reports: Reviewed and negative : reports: Reviewed and negative PD PAST MEDICAL HISTORY - Past Medical History Cardiovascular: None Respiratory: None Neuro: CVA, Other Endocrine/Autoimmune: None GI: None : Retention HEENT: None Psych: None Musculoskeletal: None Derm: Eczema - Past Surgical History Past Surgical History: Yes General: Cholecystectomy Ortho: Spine surgery - Present Medications Home Medications: Ambulatory Orders Medication Instructions Recorded Confirmed Phenazopyridine HCl [Pyridium] 200 mg PO TID PRN #6 tablet 10/06/20 Sulfamethoxazole/Trimethoprim 1 each PO BID #14 tablet 10/06/20 [Bactrim 400-80 mg Tablet] Ferrous Gluconate 324 mg PO DAILY #20 tablet 03/12/22 Ertapenem [INVanz] 1 gm IV Q24H #7 ml 09/22/22 - Allergies Allergies/Adverse Reactions: Allergies Allergy/AdvReac Type Severity Reaction Status Date / Time oxycodone HCl * AdvReac Emesis Verified 10/06/20 10:27 [From Percocet] - Social History Does the pt smoke?: Yes Smoking Status: Current every day smoker Does the pt drink ETOH?: No Does the pt have substance abuse?: No - Immunizations Immunizations are current?: No - POLST Patient has POLST: No PD ED PE NORMAL - Vitals Vital signs reviewed: Yes - General General: Alert and oriented X 3, No acute distress, Other (Frail and chronically ill-appearing) - Cardiac Cardiac: RRR, No murmur - Respiratory Respiratory: No respiratory distress, Clear bilaterally - Abdomen Abdomen: Normal bowel sounds, Soft, Non tender, Non distended - Back Back: No CVA TTP, No spinal TTP - Derm Derm: Normal color, Warm and dry, No rash Results - Vitals Vitals: Vital Signs - 24 hr 09/22/22 17:43 Temperature 36.7 C Heart Rate 82 Respiratory 16 Rate Blood Pressure 124/89 H O2 Saturation 100 Oxygen O2 Source Room air PD Medical Decision Making - ED course Complexity details: reviewed old records, reviewed results, re-evaluated patient, d/w patient ED course: This is a 77-year-old male who presents from his care facility for IV antibiotic infusion. The patient has an ESBL Klebsiella UTI. I reviewed the prior urine culture and will start the patient on ertapenem but unfortunately we cannot get ertapenem tonight therefore she has received a dose of meropenem and will be discharged back to his facility, with a prescription for ertapenem to infuse every 24 hours. He cannot get a PICC placed tonight but his facility can call to arrange for outpatient PICC placement tomorrow. If he is not able to get the PICC placed tomorrow, he will need an IV infusion of ertapenem At 7 PM tomorrow. The patient is currently asymptomatic, nontoxic and has stable vital signs. He would also need to return if he developed any new or worsening symptoms and this was discussed with patient and communicated to his facility. Departure - Departure Disposition: 01 Home, Self Care Clinical Impression: UTI (urinary tract infection) Qualifiers: Urinary tract infection type: acute cystitis Hematuria presence: without hematuria Qualified Code(s): N30.00 - Acute cystitis without hematuria Condition: Good Instructions: ED UTI Cystitis Male Prescriptions: Ertapenem [INVanz] 1 gm IV Q24H #7 ml Comments: You will need to arrange PICC line placement tomorrow. This can be done by calling the Hospital switchboard and asking for arrangements for a PICC line. If he is unable to get it tomorrow, he can have an peripheral IV placed and ertapenem, 1 g, should be infused daily For the next 7 days. He received his dose here around 7 PM tonight therefore his next dose will be around 7 PM tomorrow night.
[2022-09-22 20:20] VITALS: BP 130/93
== END 2022-09-22 20:31 | disposition home or self-care (01) ==
LOC: ED 17:35
DX: N30.00 Acute cystitis without hematuria (principal); F17.200 Nicotine dependence, unspecified, uncomplicated
CPT/HCPCS: 96365; 99283; 99284; J2185

== ENCOUNTER 2022-09-22 20:30 | Outpatient (CLI) | payer MEDICARE, MEDICAID | END 2022-09-22 20:31 | disposition home or self-care (01) | LOC: EMS 20:30 | PROVIDERS: ATTEND Emergency Medicine | DX: R53.1 Weakness (principal); Z74.01 Bed confinement status | CPT/HCPCS: A0425; A0428 ==

== ENCOUNTER 2022-09-24 08:38 | Day surgery (SDC) | payer MEDICARE, MEDICAID ==
[2022-09-24 09:55] VITALS: BP 103/76
--- NOTE | 2022-09-24 10:04 | XRAY Report ---
PROCEDURE: Chest for Line Placement INDICATIONS: PICC placement TECHNIQUE: One view of the chest was acquired. COMPARISON: None. FINDINGS: Surgical changes and devices: Right-sided PICC line tip is seen projecting in the region of lower SV C. Lungs and pleura: No pleural effusions or pneumothorax. Lungs are clear. Mediastinum: Bilaterally tortuous thoracic aorta is seen.. Heart size is normal. Bones and chest wall: No suspicious bony lesions. Overlying soft tissues appear unremarkable. IMPRESSION: No acute cardiopulmonary process. Right-sided PICC line tip is seen in the region of lower SVC. Reviewed by: John Chicas MD on 09/24/2022 10:03 AM PDT Approved by: John Chicas MD on 09/24/2022 10:03 AM PDT Station ID: [id number]
--- NOTE | 2022-09-24 10:09 | ANESTHESIA PROCEDURE NOTE ---
Anesth Central Line Template - Central Line Central Line Preparation: Consent Obtained, Time out completed, Ultrasound used, Sterile prep and drape Central line location: Right Basilic Central line type: PICC Single Lumen Central line catheter tip site resides: Superior vena cava (SVC) Central line aftercare: Secured, Placement confirmed, No complications, Bundle checklist complete, Pt tolerated well Other Info/Details: Right arm prepped with chlorohexadine. Full sterile gown, gloves, mask and drapes utilized. The Right basilic vein was imaged using US. Vein accessed with 20G needle and wire advanced with ease. Catheter trimmed to 41cm. Peel away sheath inserted and wire removed. Catheter inserted and tip directed towards heart. Tracking wire removed. PICC aspirates blood and flushes with ease. Chest x-ray obtained shows tip at the cavo/atrial junction. Line secured with 3cm exposed. Patient tolerated well.
== END 2022-09-24 08:39 | disposition home or self-care (01) ==
LOC: SDS 08:38
PROVIDERS: ATTEND Nurse Anesthetist, Certified Registered
DX: N39.0 Urinary tract infection, site not specified (principal)
CPT/HCPCS: 36569; C1751

== ENCOUNTER 2022-10-02 14:14 | Outpatient (CLI) | payer MEDICARE, MEDICAID | END 2022-10-02 23:59 | disposition critical access hospital (66) | LOC: EMS 14:14 | DX: R62.7 Adult failure to thrive (principal); R53.1 Weakness | CPT/HCPCS: A0425; A0429 ==

== ENCOUNTER 2022-10-02 14:21 | Emergency (ER) | payer MEDICARE, MEDICAID ==
--- NOTE | 2022-10-02 15:08 | ED Physician Documentation ---
History of Present Illness - Stated complaint Stated Complaint: FTT - Additonal information Additional information: 77-year-old male is brought to the emergency department from his care facility for evaluation of failure to thrive. Reportedly the patient has stopped eating and drinking over the last 2 weeks. He is refusing all of his medications. The patient was seen in this emergency department on 22 September where a PICC line was requested to be placed as the patient had an ESBL Klebsiella. He was started on ertapenem. In review of the paperwork from the care facility the patient is a DNR with selective treatment. The patient presents appearing very cachectic and thin. He is only able to moan and I am unable to have him answer any questions. He has very dry lips. He does not present with fever hypotension or tachycardia however. A review of his medical record from [facility] seems to show a past medical history that includes history of epilepsy, history of TIA and CVAs, peripheral vascular disease, history of hypertension, hyperlipidemia, angina, h istory of aortic aneurysm, as well as known ESBL urinary tract infection with chronic indwelling Baez catheter. Review of Systems Unable to obtain: Other PD PAST MEDICAL HISTORY - Past Medical History Cardiovascular: None Respiratory: None Neuro: CVA, Other Endocrine/Autoimmune: None GI: None : Retention HEENT: None Psych: None Musculoskeletal: None Derm: Eczema - Past Surgical History Past Surgical History: Yes General: Cholecystectomy Ortho: Spine surgery - Present Medications Home Medications: Ambulatory Orders Medication Instructions Recorded Confirmed Phenazopyridine HCl [Pyridium] 200 mg PO TID PRN #6 tablet 10/06/20 Sulfamethoxazole/Trimethoprim 1 each PO BID #14 tablet 10/06/20 [Bactrim 400-80 mg Tablet] Ferrous Gluconate 324 mg PO DAILY #20 tablet 03/12/22 Ertapenem [INVanz] 1 gm IV Q24H #7 ml 09/22/22 - Allergies Allergies/Adverse Reactions: Allergies Allergy/AdvReac Type Severity Reaction Status Date / Time No Known Drug Allergies Allergy Verified 10/02/22 14:31 - Social History Does the pt smoke?: Yes Smoking Status: Current every day smoker Does the pt drink ETOH?: No Does the pt have substance abuse?: No - Immunizations Immunizations are current?: No - POLST Patient has POLST: No PD ED PE EXPANDED - General General: Lethargic, Other (Thin, cachectic and very frail appearance) - Cardiac Cardiac: Regular Rate, Murmur Present (3/6 systolic murmur), Pedal strong equal (1+ pulses radially and pedal he), Cap refill < 2 sec - Respiratory Respiratory: Clear to ausultation kimberly - Abdomen Abdomen: Other (Very thin abdomen. Nontender) - Derm Derm: Normal color, Warm and dry. No: Rash - Extremities Extremities: No: Deformity - Neuro Neuro: Lethargic - GCS Eye Opening: Spontaneous Motor: Localizes to Pain Verbal: Incomprehensible Total: 11 Results - Vitals Vitals: Vital Signs - 24 hr 10/02/22 10/02/22 10/02/22 14:22 14:57 16:37 Temperature 36.6 C Heart Rate 103 H 97 88 Respiratory 17 20 20 Rate Blood Pressure 95/76 101/79 118/92 H O2 Saturation 98 96 100 Oxygen O2 Source Room air - EKG (time done) 1452 EKG releavant findings:: EKG personally interpreted by author of this note. Relevant findings are: Rate: Rate (enter#) (96) Rhythm: NSR [place]: Other Intervals: RBBB Ischemia: Q waves (inferior leads), Non specific changes Compare to prior EKG: Changed from prior EKG Computer interpretation: Agree with computer - Labs Labs: Laboratory Tests 10/02/22 10/02/22 10/02/22 15:28 15:28 15:28 WBC 13.6 H RBC 2.98 L Hgb 8.0 L Hct 25.9 L MCV 86.9 MCH 26.8 L MCHC 30.9 L RDW 13.7 Plt Count 190 MPV 9.3 Neut # (Auto) 12.6 H Lymph # (Auto) 0.[address] [place] # (Auto) 0.5 Eos # (Auto) 0.0 Baso # (Auto) 0.0 Absolute Nucleated RBC 0.00 Nucleated RBC % 0.0 Sodium 136 Potassium 3.6 Chloride 100 L Carbon Dioxide 27 Anion Gap 9.0 BUN 40 H Creatinine 0.7 Estimated GFR (MDRD) 109 Glucose 134 H Lactic Acid 1.0 Calcium 9.3 Total Bilirubin 0.9 AST 12 ALT < 10 L Alkaline Phosphatase 76 Total Protein 6.9 Albumin 3.3 Globulin 3.6 Albumin/Globulin Ratio 0.9 L - Rads (name of study) cxr Relevant Findings:: Final report received (No acute cardiopulmonary process. Right-sided PICC line. Tip is in SVC.) PD Medical Decision Making - ED course Complexity details: reviewed results, re-evaluated patient, considered differential, d/w patient ED course: 77-year-old male who is a resident of [facility] was sent to the emergency department because over the last several weeks he has stopped eating, drinking as well as taking his medications. He was seen in this emergency department on September 22 as the care facility had requested a PICC line as the patient had an ESBL UTI requiring ertapenem. He has completed this course of antibiotics. The patient is very thin and cachectic appearing. I am unable to get additional history from the patient. He simply moans. He does have a POLST form in place which indicates a DNR/DNI with limited interventions. I did obtain a CBC, electrolytes and lactate as well as blood cultures x2. Per my interpretation there is some mild leukocytosis with white count of 13,000. He is anemic with a hemoglobin of 8. This is downtrending from the most recent hemoglobin over a year ago. His electrolytes show an elevated BUN consistent with a dry appearance on exam. For the dehydration he was given a liter of crystalloid. I deferred getting a urinalysis as he is completed a course of antibiotics for the urinary tract infection and a Baez catheter urinalysis would be exceedingly difficult to interpret for signs of infection. Reassuringly his lactate was not elevated. He did not have hypotension tachycardia or fever here. A chest x-ray was without findings to show pneumonia or pleural effusion. At this time given the patient's POLST stating DNR/DNI I do not feel that he would benefit from admission to the hospital. In addition there is no clinical indication for admission to the hospital. Given his declining health I feel that he would benefit from a palliative care consult and I have placed this order I Did speak with his physician Dr. San. I let him know that clinically there is no indication for admission though we did treat the dehydration with fluids. I also let him know that a palliative care consult was placed. I also attempted to contact the next of kin listed in the computer a Kaden Olvera but the listed phone number went to a local [facility]. I did not leave a voicemail. Departure - Departure Disposition: Home, Self Care Clinical Impression: Dehydration, Failure to thrive in adult, Chronic indwelling Baez catheter Condition: Serious Comments: Jeremiah was sent to the hospital because for at least a week or more he is stopped eating, drinking and taking his medications. He does have a POLST form that indicates he is a DNR DNI. His labs today show that he has an anemia with a hemoglobin of 8. This is above the threshold for transfusion. His most recent hemoglobin a year ago was 9.2. His electrolytes show that he is dehydrated his BUN was 40 but his creatinine is normal. We did give him some IV fluids today in the emergency department. His chest x-ray showed no signs of pneumonia. He has been without fever, hypotension or tachycardia. There is no clinical indication for admission to the hospital today. We do have blood cultures pending and we will notify you if the y are positive. I did speak with Dr. San His physician on the phone. He is aware of what our labs today showed as well as that I am placing a palliative care consult. In accordance with his DNR/DNI wishes He is stable for return back to [facility]. However it is imperative that you discuss his poor clinical condition with his primary care provider. We did attempt to get in touch with Kaden Olvera who is listed as his next of kin but the phone message went to a voicemail for a [facility]
[2022-10-02 15:35] LABS: BASOPHILS % (AUTO) 0.1 %; HCT - HEMATOCRIT 25.9 % (42.0-52.0); LYMPHOCYTES # (AUTO) 0.3 10^3/uL (1.5-3.5); LYMPHOCYTES % (AUTO) 2.4 %; MEAN CORPUSCULAR HEMOGLOBIN 26.8 pg (27.0-31.0); MEAN CORPUSCULAR HGB CONC 30.9 g/dL (32.0-36.0); MEAN CORPUSCULAR VOLUME 86.9 fL (80.0-94.0); MEAN PLATELET VOLUME 9.3 fL (7.4-11.4); MONOCYTES # (AUTO) 0.5 10^3/uL (0.0-1.0); MONOCYTES % (AUTO) 3.6 %; NEUTROPHILS # (AUTO) 12.6 10^3/uL (1.5-6.6); NEUTROPHILS % (AUTO) 93.2 %; PLT - PLATELET COUNT 190 10^3/uL (130-450); RED BLOOD COUNT 2.98 10^6/uL (4.70-6.10); RED CELL DISTRIBUTION WIDTH 13.7 % (12.0-15.0); WHITE BLOOD COUNT 13.6 x10^3/uL (4.8-10.8)
[2022-10-02 15:48] LABS: ALBUMIN 3.3 g/dL (3.2-5.5); ALBUMIN/GLOBULIN RATIO 0.9 (1.0-2.2); ALKALINE PHOSPHATASE 76 IU/L (42-121); ALT ALANINE AMINOTRANSFERASE < 10 IU/L (10-60); AST ASPARTATE AMINOTRANSFERASE 12 IU/L (10-42); BILIRUBIN,TOTAL 0.9 mg/dL (0.2-1.0); BUN - BLOOD UREA NITROGEN 40 mg/dL (6-20); CALCIUM 9.3 mg/dL (8.5-10.3); CARBON DIOXIDE - CO2 27 mmol/L (21-32); CHLORIDE 100 mmol/L (101-111); CREATININE 0.7 mg/dL (0.6-1.2); GFR - MDRD 109 (>89); GLUCOSE 134 mg/dL (70-100); POTASSIUM 3.6 mmol/L (3.5-5.0); SODIUM 136 mmol/L (135-145); TOTAL PROTEIN 6.9 g/dL (6.7-8.2)
--- NOTE | 2022-10-02 15:56 | XRAY Report ---
PROCEDURE: Chest 1 View X-Ray INDICATIONS: Sepsis TECHNIQUE: One view of the chest was acquired. COMPARISON: None. FINDINGS: Surgical changes and devices: Right-sided PICC line tip is in SVC. Lungs and pleura: No pleural effusions or pneumothorax. Lungs are clear. Mediastinum: Mildly tortuous thoracic aorta is seen. Heart size is normal. Bones and chest wall: No suspicious bony lesions. Overlying soft tissues appear unremarkable. IMPRESSION: No acute cardiopulmonary process. Right-sided PICC line tip is in SVC. Reviewed by: John Chicas MD on 10/02/2022 3:54 PM PDT Approved by: John Chicas MD on 10/02/2022 3:54 PM PDT Station ID: [id number]
[2022-10-02] MEDS ORDERED: SODIUM CHLORIDE 0.9% 1,000 ML IV STA (16:05)
[2022-10-02 17:40] VITALS: BP 124/83
== END 2022-10-02 17:28 | disposition home or self-care (01) ==
LOC: EDUNIT# → ED 14:21
DX: R62.7 Adult failure to thrive (principal); E86.0 Dehydration; Z66 Do not resuscitate; F17.200 Nicotine dependence, unspecified, uncomplicated; Z91.148 Patient's other noncompliance with medication regimen for other reason; Z86.73 Personal history of transient ischemic attack (TIA), and cerebral infarction without residual deficits
CPT/HCPCS: 36415; 80053; 83605; 85025; 87040; 93005; 96360; 99285

== ENCOUNTER 2022-10-02 17:24 | Outpatient (CLI) | payer MEDICARE, MEDICAID | END 2022-10-02 23:59 | disposition home or self-care (01) | LOC: EMS 17:24 | PROVIDERS: ATTEND Registered Nurse | DX: R53.1 Weakness (principal); R41.82 Altered mental status, unspecified; R62.7 Adult failure to thrive; Z74.01 Bed confinement status | CPT/HCPCS: A0425; A0428 ==